=== PATIENT | female | born 1960 | race Caucasian/White ===

== ENCOUNTER 2016-08-15 08:10 | Day surgery (SDC) | payer MEDICARE, OTHER ==
--- NOTE | 2016-08-04 08:17 | HP ---
DATE OF ADMISSION: CHIEF COMPLAINT: Sebaceous cyst. HISTORY OF PRESENT ILLNESS: Patient is a 56-year-old female who comes to the office complaining of a mass in the upper mid back. She states that she had previously had an infected sebaceous cyst in that area that was incised and drained and subsequently excised. The patient describes a large scar in that location. She has mild pain in that location. Some itching. No fevers. No recent redness or antibiotic usage. PAST MEDICAL HISTORY: Peripheral vascular disease, diabetes, hypertension. PAST SURGICAL HISTORY: , hysterectomy, peripheral stent placement. MEDICATIONS: 1. Metformin. 2. Gabapentin. 3. Glipizide. 4. Atorvastatin. 5. Insulin. 6. Levemir. ALLERGIES: None. PHYSICAL EXAM: GENERAL: Well-developed, well-nourished female in no distress. HEENT: Normocephalic. Sclerae is nonicteric. CHEST: No deformities. ABDOMEN: Soft, nontender, nondistended. Back examination reveals a cystic structure in the upper mid back with a puncta present, approximately 1.5 cm to the right of that and a large scar to the right of that area as well. There seems to be some connection between all 3 structures. No erythema, minimal tenderness, no drainage. IMPRESSION: A 56-year-old female with back cyst. PLAN: Will proceed with operative excision on 08/15. The risks of bleeding, infection, postoperative pain, scarring, numbness and recurrence were discussed. She understands and wishes to proceed.
[2016-08-08 13:27] VITALS: BMI 29.5
[~2016-08-15 08:10] MED LIST: DEXAMETHASONE SOD PHOSPHATE 10 MG/ML 1 ML VIAL IV ONE; HEPARIN SODIUM,PORCINE 5,000 UNIT/ML 1 ML VIAL SQ ONE; HYDROmorphone 1 MG/ML 1 ML SYRINGE IVP PRN; LACTATED RINGERS 1,000 ML IV SCH; LIDOCAINE 1% 20 ML VIAL (10MG/ML) FOR IV START INTRADERMA PRN; MIDAZOLAM 2 MG/2 ML VIAL IV PRN; ONDANSETRON 4 MG/2 ML VIAL IVP ONE; Pre Op ABX Message 1 EACH MISC MISCELLANE ONE; SCOPOLAMINE 1.5MG/72HR PATCH TRANSDERM ONE
[2016-08-15 08:56] LABS: Glucose,Whole Blood 200 mg/dL (75-99)
[2016-08-15] MEDS ORDERED: fentaNYL (PF) 50 MCG/ML 2 ML AMP ONE (09:03)
[2016-08-15] MEDS ORDERED: PHENYLEPHRINE-0.9% NACL SYG 1 MG/10 ML SYRINGE ONE (09:03)
[2016-08-15] MEDS ORDERED: LIDOCAINE 1% INJ 10MG/ML (20 ML MDV) ONE (09:03)
[2016-08-15] MEDS ORDERED: SUCCINYLCHOLINE CHLORIDE 100 MG/5 ML SYR IV ONE (09:03)
[2016-08-15] MEDS ORDERED: ePHEDrine 50 MG/ML 1 ML AMP ONE (09:03)
[2016-08-15] MEDS ORDERED: PROPOFOL 10 MG/ML 20 ML VIAL IV ONE (09:03)
[2016-08-15] MEDS ORDERED: MIDAZOLAM 2 MG/2 ML VIAL ONE (09:03)
[2016-08-15] MEDS ORDERED: SODIUM CHLORIDE 0.9% 100 ML with ceFAZolin 2,000 MG IV ONE ×2 (09:29)
[2016-08-15] MEDS ORDERED: BUPIVACAIN-EPI 0.5%-1:200,000 30 ML VIAL SQ ONE (09:32)
[2016-08-15] MEDS ORDERED: HYDROcodone/APAP 5-325MG 1 EACH TAB PO PRN (10:08)
[2016-08-15] MEDS ORDERED: NALOXONE 0.4 MG/ML 1 ML VIAL IV PRN (10:08)
[2016-08-15 10:23] VITALS: RESP 16; TEMP 97.8
--- NOTE | 2016-08-15 10:23 | P.OP ---
Date of Procedure: 08/15/16 Preoperative Diagnosis: Postoperative Diagnosis: Procedure(s) Performed: PREOPERATIVE DIAGNOSIS: Sebaceous cyst POSTOPERATIVE DIAGNOSIS: Same PROCEDURE: Excision sebaceous cyst SURGEON: Chrissy EVANSL: Minimal ANESTHESIA: General COMPLICATIONS: None OPERATIVE PROCEDURE: Patient was placed in the right decubitus position. The sebaceous cyst in the mid upper back was excised. This measured 6 x 2.5 cm. This actually incorporated 3 separate areas of puncta and cysts. This was excised sharply. Small bleeders were controlled using electrocautery. Flaps were raised superiorly and inferiorly. Subcutaneous tissues were closed using 3 -0 Vicryl sutures. The skin was closed using a combination of interrupted and running 4-0 nylon sutures. Sterile dressings were then applied. DISPOSITION: Stable to recovery room Implants: Indications for Procedure: Operative Findings: Description of Procedure:
[2016-08-15 11:04] VITALS: BP 128/58; PULSE 85
== END 2016-08-15 11:05 | disposition home or self-care (01) ==
LOC: OR 08:10
PROVIDERS: ATTEND Surgery
DX: L72.0 Epidermal cyst (principal); I73.9 Peripheral vascular disease, unspecified; E11.9 Type 2 diabetes mellitus without complications; I10 Essential (primary) hypertension; E78.5 Hyperlipidemia, unspecified; F17.200 Nicotine dependence, unspecified, uncomplicated; Z79.84 Long term (current) use of oral hypoglycemic drugs; Z79.4 Long term (current) use of insulin; Z79.899 Other long term (current) drug therapy; Z79.02 Long term (current) use of antithrombotics/antiplatelets; Z79.82 Long term (current) use of aspirin
CPT/HCPCS: 88304; 11406; 12032; J2250; J1644; J1100; J2405; J2001; J3010; J0690; J2370; J0330; J2704

== ENCOUNTER → 2017-05-21 | Outpatient (CLI) | payer MEDICARE ==
[2017-05-21 17:21] LABS: Blood Urea Nitrogen 16 mg/dL (7-17)
--- NOTE | 2017-05-21 18:55 | CT ---
EXAMINATION TYPE: CT abdomen pelvis wo/w con DATE OF EXAM: 05/21/2017 COMPARISON: NONE HISTORY: Rectal pain and diarrhea CT DLP: 2707 mGycm Automated exposure control for dose reduction was used. TECHNIQUE: Helical acquisition of images was performed from the lung bases through the pelvis. CONTRAST: Performed with Oral Contrast and without and with IV Contrast, patient injected with 100 mL of Isovue 300. FINDINGS: Lung bases are clear. There is no pleural effusion. Liver shows no focal defect. Bile ducts are not d ilated. Gallbladder is distended and measures 3.7 cm. Spleen appears normal. There is no pancreatic m ass. There is a oval-shaped 1 cm area on the right adrenal gland. There is no hydronephrosis. Kidneys have normal size. There is bilateral renal calcification that could be vascular. There is no retroperitoneal adenopathy. Abdominal aorta is atheromatous. There is no ascites. Appendi x is not seen. There is no sign of appendicitis. I see no intestinal wall thickening. There are no di lated loops. There is some retained fecal material in the colon. I see no bony destructive process. IMPRESSION: MILD CONSTIPATION. NONOBSTRUCTING RENAL CALCIFICATION. ATHEROSCLEROTIC VASCULAR DISEASE.
== END | disposition home or self-care (01) ==
LOC: RADCTMAIN 16:35
DX: K59.00 Constipation, unspecified (principal); N28.89 Other specified disorders of kidney and ureter; I25.10 Atherosclerotic heart disease of native coronary artery without angina pectoris
CPT/HCPCS: 82565; 84520; 74178; 36415; Q9967

== ENCOUNTER 2017-06-02 14:40 | Emergency (ER) | payer MEDICARE ==
--- NOTE | 2017-06-02 16:35 | ED ---
General Adult HPI - General Chief complaint: Abdominal Pain Stated complaint: back pain/kidney stone Time Seen by Provider: 06/02/17 16:07 Source: patient, family, RN notes reviewed Mode of arrival: ambulatory Limitations: no limitations - History of Present Illness Initial comments: Chief complaint history of present illness a 56-year-old female here with a sister. The patient reports that she's been having discomfort in her perirectal area for 6 years. She sees a GI doctor for this. Patient also had a CAT scan of her abdomen and pelvis done several days ago. She called for the results and she was told that she had kidney stones. The patient presents today with discomfort to the right flank area. This is new. She did not have this when she had a CAT scan. The patient's CAT scan was done here and reviewed by radiologist significant findings include a gallbladder is distended and measures 3.7 cm. There is no hydronephrosis. Kidneys have normal size. There is bilateral renal calcification that could be vascular. The final impression was mild constipation. Nonobstructing renal calcification. Atherosclerotic vascular disease. As read by Dr. Toure - Related Data Home Medications Medication Instructions Recorded Confirmed Aspirin 81 mg PO DAILY 05/08/15 06/02/17 INSULIN LISPRO (HumaLOG) [humaLOG] 0 unit SQ AC-TID 05/08/15 06/02/17 Insulin Detemir [Levemir Flextouch] 30 unit SQ HS 05/08/15 06/02/17 Atorvastatin [Lipitor] 40 mg PO HS 08/08/16 06/02/17 Gabapentin [Neurontin] 300 mg PO TID 08/08/16 06/02/17 metFORMIN HCL 1,000 mg PO BID 08/08/16 06/02/17 Citalopram Hydrobromide [CeleXA] 20 mg PO DAILY 06/02/17 06/02/17 FLUoxetine HCL [PROzac] 40 mg PO DAILY 06/02/17 06/02/17 Ibuprofen [Motrin] 800 mg PO BID 06/02/17 06/02/17 Zolpidem [Ambien] 5 mg PO HS PRN 06/02/17 06/02/17 glipiZIDE [Glucotrol] 10 mg PO AC-BID 06/02/17 06/02/17 Previous Rx's Medication Instructions Recorded Hydrocodone/Acetaminophen [Weston 1 each PO Q6HR PRN #10 tab 06/02/17 5-325] Allergies Allergy/AdvReac Type Severity Reaction Status Date / Time No Known Allergies Allergy Verified 06/02/17 17:42 Review of Systems ROS Statement: Those systems with pertinent positive or pertinent negative responses have been documented in the HPI. Review of systems; no complaint of headache no visual acuity changes denies sore throat denies neck pain denies chest pain or shortness of breath. She has discomfort to the right flank area. Does not significantly increase with twisting turning or bending. Denies any direct injury. Also mild discomfort in the right upper quadrant. Denies nausea vomiting . Denies any change in the color of her stool. Denies the urine being dark. She reports she takes medications to slow her loose stool which is a chronic problem for 6 years. She 's also states she's had a urinary tract infection multiple times currently on Keflex. All systems are reviewed. Past medical problems significant for insulin-dependent diabetes mellitus, osteoarthritis, vascular disorderPAD, she had bilateral fem-pop bypasses. She's had 3 C-sections, partial hysterectomy . The patient's family history an aunt had cancer of unknown type. Patient denies any ALLERGIES. She does smoke strongly encouraged stop smoking especially in lieu of the fact that she has peripheral vascular disease. Patient advised to talk to her family physician about ways to helping her stop. She denies drinking. Currently not working and denies exposure to chemicals at home. ROS Other: All systems not noted in ROS Statement are negative. Past Medical History Past Medical History: Diabetes Mellitus, Osteoarthritis (OA), Vascular Disorder Additional Past Medical History / Comment(s): PAD History of Any Multi-Drug Resistant Organisms: None Reported Past Surgical History: Section, Hysterectomy Additional Past Surgical History / Comment(s): Ceserean section X3, partial hyst and bilateral stents in legs. Past Anesthesia/Blood Transfusion Reactions: No Reported Reaction Past Psychological History: Anxiety, Depression Smoking Status: Current every day smoker Past Alcohol Use History: Rare Past Drug Use History: None Reported - Past Family History Mother Family Medical History: Deep Vein Thrombosis (DVT) General Exam - General Exam Comments Initial Comments: General: The patient is awake and alert, in no distress, and does not appear acutely ill. Finds mild discomfort ongoing for several days to the right flank. No other complaints. Vital signs shows temperature 98.7 pulse 88 respiratory rate 20 pulse ox 97% room air blood pressure elevated 208/84. Initial be repeated. Eye: Pupils are equal, round and reactive to light, extra-ocular movements are intact ; there is normal conjunctiva bilaterally. No signs of icterus. Ears, nose, mouth and throat: There are moist mucous membranes and no oral lesions. Neck: The neck is supple, there is no tenderness . Cardiovascular: There is a regular rate and rhythm. No murmur, rub or gallop is appreciated. Respiratory: Lungs are clear to auscultation, respirations are non-labored, breath sounds are equal. No wheezes, stridor, rales, or rhonchi. Gastrointestinal: Nontender with deep palpation, subjective discomfort to the right upper quadrant and right flank area. No organomegaly. Normal active bowel sounds. Patient reports she takes medication help slow for loose stool. Also complains of chronic discomfort as though her rectum is falling out. She has had colonoscopies in the past 6 months. She does see a GI doctor for this specific complaint. Back: No rashes noted to her back area discomfort to the right flank area. No pain with palpation twisting or turning. Early shingles discussed. Musculoskeletal: Normal ROM, no tenderness, There is no pedal edema. There is no calf tenderness or swelling. Sensation intact. Neurological: No complaint of any neuro deficits no weakness. No balance problems. No focal or lateralizing findings. Skin: Skin is warm and dry and no rashes or lesions are noted. Psychiatric: Cooperative, Limitations: no limitations Course Vital Signs 06/02/17 06/02/17 14:44 16:48 Temperature 98.7 F Pulse Rate 88 78 Respiratory 20 18 Rate Blood Pressure 200/84 166/78 O2 Sat by Pulse 97 96 Oximetry Medical Decision Making - Medical Decision Making Medical decision making; this is a 57-year-old female who been having right flank discomfort for 3 days. Prior to this discomfort starting she had a CAT scan that showed evidence of kidney stones within the kidneys. She also had chronic diarrhea for over 6 years. She does see a production worker. Labs show white count of 9 hemoglobin 17 hematocrit 50 with a potassium 4.9. BUN 14 creatinine 0.55 GFR greater than 90. Glucose 286. Patient reports she' s not good about her diet. Advised to talk to her family doctor about her proper diet. Urine shows 3 reds 4 whites. Ultrasound of the right upper quadrant was done and reviewed by radiologist his impression is that there is some echogenic bile. No gallstones or dilated ducts. As read by Dr. Toure X-ray of the abdomen 2 views was done reviewed by radiologist his impression is there is no sign of intestinal obstruction or pneumoperitoneum. There is retained fecal material throughout the colon. There is vascular calcification. Lung bases are clear. There is curvilinear calcification over the left kidney that could be vascular. Conclusion. Nonacute abdomen. Constipation. As read by Dr. Toure The patient takes medications to stop her loose stool. Urine will be cultured. Advised to continue with her current medications and follow-up with her family doctor. 100 and the patient was given one Weston. She will be given 10 Weston to go home with. Patient denies being on narcotics. - Lab Data Result diagrams: 06/02/17 16:44 06/02/17 16:44 Lab Results 06/02/17 06/02/17 06/02/17 Range/Units 16:39 16:44 16:44 WBC 9.0 (3.8-10.6) k/uL RBC 5.66 H (3.80-5.40) m/uL Hgb 17.8 H (11.4-16.0) gm/dL Hct 50.8 H (34.0-46.0) % MCV 89.9 (80.0-100.0) fL MCH 31.4 (25.0-35.0) pg MCHC 35.0 (31.0-37.0) g/dL RDW 13.8 (11.5-15.5) % Plt Count 148 L (150-450) k/uL Neutrophils % 60 % Lymphocytes % 30 % Monocytes % 5 % Eosinophils % 3 % Basophils % 1 % Neutrophils # 5.4 (1.3-7.7) k/uL Lymphocytes # 2.7 (1.0-4.8) k/uL Monocytes # 0.5 (0-1.0) k/uL Eosinophils # 0.2 (0-0.7) k/uL Basophils # 0.1 (0-0.2) k/uL Sodium 138 (137-145) mmol/L Potassium 4.9 (3.5-5.1) mmol/L Chloride 98 (98-107) mmol/L Carbon Dioxide 25 (22-30) mmol/L Anion Gap 15 mmol/L BUN 14 (7-17) mg/dL Creatinine 0.55 (0.52-1.04) mg/dL Est GFR (CKD-EPI)AfAm >90 (>60 ml/min/1.73 sqM) Est GFR (CKD-EPI)NonAf >90 (>60 ml/min/1.73 sqM) Glucose 286 H (74-99) mg/dL Calcium 10.4 H (8.4-10.2) mg/dL Total Bilirubin 0.6 (0.2-1.3) mg/dL AST 20 (14-36) U/L ALT 25 (9-52) U/L Alkaline Phosphatase 160 H (38-126) U/L Total Protein 7.4 (6.3-8.2) g/dL Albumin 4.7 (3.5-5.0) g/dL Amylase 64 (30-110) U/L Lipase 339 H (23-300) U/L Urine Color Yellow Urine Appearance Clear (Clear) Urine pH 5.5 (5.0-8.0) Ur Specific Reading 1.023 (1.001-1.035) Urine Protein Negative (Negative) Urine Glucose (UA) 4+ H (Negative) Urine Ketones Trace H (Negative) Urine Blood Negative (Negative) Urine Nitrite Negative (Negative) Urine Bilirubin Negative (Negative) Urine Urobilinogen <2.0 (<2.0) mg/dL Ur Leukocyte Esterase Small H (Negative) Urine RBC 3 (0-5) /hpf Urine WBC 4 (0-5) /hpf Ur Squamous Epith Cells 3 (0-4) /hpf Urine Bacteria Rare H (None) /hpf Urine Mucus Rare H (None) /hpf Disposition Clinical Impression: Right flank pain Disposition: HOME SELF-CARE Condition: Fair Instructions: Kidney Stones (ED), Renal Colic (ED) Additional Instructions: Increase fluids. Take medication as directed follow with family physician. Prescriptions: Hydrocodone/Acetaminophen [Weston 5-325] 1 each PO Q6HR PRN #10 tab PRN Reason: Pain Is patient prescribed a controlled substance at d/c from ED?: Yes If prescribed controlled substance>3 days was MAPS reviewed?: No When asked, does pt state using other controlled substances?: No Referrals: Marie Hinojosa MD [Primary Care Provider] - 1-2 days Time of Disposition: 18:19
[2017-06-02 16:48] VITALS: RESP 18
[2017-06-02 17:07] LABS: Appearance,Urine Clear (Clear); Bacteria,Urine Rare /hpf; Bilirubin,Urine Negative (Negative); Blood,Urine Negative (Negative); Color,Urine Yellow; Glucose,Urine (UA) 4+ (Negative); Ketones,Urine Trace (Negative); Leukocyte Esterase,Urine Small (Negative); Mucus,Urine Rare /hpf; Nitrite,Urine Negative (Negative); PH, Urine 5.5 (5.0-8.0); Protein,Urine Negative (Negative); RBC,Urine 3 /hpf (0-5); Specific Gravity,Urine 1.023 (1.001-1.035); Squamous Epithelial Cell,Urine 3 /hpf (0-4); Urobilinogen,Urine <2.0 mg/dL (<2.0); WBC,Urine 4 /hpf (0-5)
--- NOTE | 2017-06-02 17:11 | XR ---
History abdominal pain. Comparison none. Technique 3 views. FINDINGS: There is no sign of intestinal obstruction or pneumoperitoneum. There is retained fecal material thro ughout the colon.. . There is vascular calcification. Lung bases are clear. There is curvilinear calc ification over the left kidney that could be vascular. CONCLUSION: Nonacute abdomen. Constipation.
[2017-06-02 17:15] LABS: ALT 25 U/L (9-52); AST 20 U/L (14-36); Albumin 4.7 g/dL (3.5-5.0); Alkaline Phosphatase 160 U/L (38-126); Amylase 64 U/L (30-110); Anion Gap 15 mmol/L; Blood Urea Nitrogen 14 mg/dL (7-17); Calcium 10.4 mg/dL (8.4-10.2); Carbon Dioxide 25 mmol/L (22-30); Chloride 98 mmol/L (98-107); Glucose 286 mg/dL (74-99); Lipase 339 U/L (23-300); Potassium 4.9 mmol/L (3.5-5.1); Sodium 138 mmol/L (137-145); Total Bilirubin 0.6 mg/dL (0.2-1.3); Total Protein 7.4 g/dL (6.3-8.2)
[2017-06-02 17:16] LABS: Basophils # (A) 0.1 k/uL (0-0.2); Basophils % (A) 1 %; Eosinophils # (A) 0.2 k/uL (0-0.7); Eosinophils % (A) 3 %; HCT 50.8 % (34.0-46.0); HGB 17.8 gm/dL (11.4-16.0); Lymphocytes # (A) 2.7 k/uL (1.0-4.8); Lymphocytes % (A) 30 %; MCH 31.4 pg (25.0-35.0); MCV 89.9 fL (80.0-100.0); Mean Platelet Volume 8.4; Monocytes # (A) 0.5 k/uL (0-1.0); Monocytes % (A) 5 %; Neutrophils # (A) 5.4 k/uL (1.3-7.7); Neutrophils % (A) 60 %; Platelet Count 148 k/uL (150-450); RBC 5.66 m/uL (3.80-5.40); RDW 13.8 % (11.5-15.5)
[2017-06-02] MEDS ORDERED: HYDROcodone/APAP 5-325MG 1 EACH TAB PO STA (17:21)
--- NOTE | 2017-06-02 17:27 | US ---
EXAMINATION TYPE: US abdomen limited DATE OF EXAM: 06/02/2017 COMPARISON: NONE CLINICAL HISTORY: R Upper quadrant discomfort. EXAM MEASUREMENTS: Liver Length: 13.6 cm Gallbladder Wall: 0.1 cm CBD: 0.4 cm Right Kidney: 12.1 x 5.4 x 5.0 cm Pancreas: somewhat obscured by bowel gas Liver: wnl Gallbladder: some dependant sludge Evidence for sonographic Akhtar's sign: CBD: wnl Right Kidney: measures slightly large IMPRESSION: There is some echogenic bile. No gallstones or dilated ducts.
[2017-06-02 18:37] VITALS: BP 175/70; PULSE 73; TEMP 97
== END 2017-06-02 18:37 | disposition home or self-care (01) ==
LOC: EC 14:40
DX: R10.11 Right upper quadrant pain (principal); K59.00 Constipation, unspecified; E11.9 Type 2 diabetes mellitus without complications; M19.90 Unspecified osteoarthritis, unspecified site; F41.9 Anxiety disorder, unspecified; F32.9 Major depressive disorder, single episode, unspecified; I73.89 Other specified peripheral vascular diseases; F17.200 Nicotine dependence, unspecified, uncomplicated; Z90.710 Acquired absence of both cervix and uterus; Z79.82 Long term (current) use of aspirin; Z79.4 Long term (current) use of insulin; Z79.1 Long term (current) use of non-steroidal anti-inflammatories (NSAID); Z79.899 Other long term (current) drug therapy
CPT/HCPCS: 36415; 74019; 76705; 80053; 81001; 82150; 83690; 85025; 87086; 99284

== ENCOUNTER 2017-08-27 12:25 | Emergency (ER) | payer MEDICARE ==
[2017-08-27 12:40] VITALS: TEMP 97.5
[2017-08-27] MEDS ORDERED: SODIUM CHLORIDE 0.9% 1,000 ML IV STA ×2 (13:04)
--- NOTE | 2017-08-27 13:05 | ED ---
Recheck HPI - General Source: patient, RN notes reviewed, old records reviewed Mode of arrival: ambulatory Limitations: no limitations <Anita Bowieily - Last Filed: 08/27/17 15:12> <Gloria Leon - Last Filed: 08/27/17 17:50> - General Chief Complaint: Recheck/Abnormal Lab/Rx Stated Complaint: Shaky, high sugar Time Seen by Provider: 08/27/17 12:41 - History of Present Illness Initial Comments: This patient's a 37-year-old female presents emergency Department chief complaint of shaking episodes feeling lightheaded and dizzy today. Patient reports that she is recently switched from her mealtime insulin to 30 units of Levemir. Patient reports that she started this yesterday with her new primary care physician Dr. Acosta. Patient states that she also started to have some intermittent numbness and tingling to the left arm. She states that she has had a chronic cough she has had COPD. Patient states that she denies any shortness of breath. She reports that she says feels somewhat dizzy with change in position from sitting to standing. Patient is a smoker. (Sania Bowie) - Related Data Home Medications Medication Instructions Recorded Confirmed Aspirin 81 mg PO DAILY 05/08/15 08/27/17 Insulin Detemir [Levemir Flextouch] 30 unit SQ DAILY 05/08/15 08/27/17 Atorvastatin [Lipitor] 40 mg PO HS 08/08/16 08/27/17 metFORMIN HCL 1,000 mg PO BID 08/08/16 08/27/17 Citalopram Hydrobromide [CeleXA] 20 mg PO DAILY 06/02/17 08/27/17 Ibuprofen [Motrin] 800 mg PO BID 06/02/17 08/27/17 glipiZIDE [Glucotrol] 10 mg PO AC-BID 06/02/17 08/27/17 Gabapentin 600 mg PO TID 08/27/17 08/27/17 Nitrofurantoin Monohyd/M-Cryst 100 mg PO Q12HR 08/27/17 08/27/17 [Macrobid] sitaGLIPtin [Januvia] 100 mg PO DAILY 08/27/17 08/27/17 Allergies Allergy/AdvReac Type Severity Reaction Status Date / Time No Known Allergies Allergy Verified 08/27/17 13:17 Review of Systems ROS Other: All systems not noted in ROS Statement are negative. <Sania Bowie - Last Filed: 08/27/17 15:12> ROS Other: All systems not noted in ROS Statement are negative. <Gloria Leon P - Last Filed: 08/27/17 17:50> ROS Statement: Those systems with pertinent positive or pertinent negative responses have been documented in the HPI. Past Medical History Past Medical History: Diabetes Mellitus, Osteoarthritis (OA), Vascular Disorder Additional Past Medical History / Comment(s): PAD History of Any Multi-Drug Resistant Organisms: None Reported Past Surgical History: Section, Hysterectomy Additional Past Surgical History / Comment(s): Ceserean section X3, partial hyst and bilateral stents in legs. Past Anesthesia/Blood Transfusion Reactions: No Reported Reaction Past Psychological History: Anxiety, Depression Smoking Status: Current every day smoker Past Alcohol Use History: Rare Past Drug Use History: None Reported - Past Family History Mother Family Medical History: Deep Vein Thrombosis (DVT) <Sania Bowie - Last Filed: 08/27/17 15:12> General Exam Limitations: no limitations <Sania Bowie - Last Filed: 08/27/17 15:12> <Gloria Leon P - Last Filed: 08/27/17 17:50> - General Exam Comments Initial Comments: Is a 57-year-old female. Alert and oriented. No significant distress. General: Well appearing, well nourished, in no distress. Oriented x 3, normal mood and affect . Ambulating without difficulty. Skin: Good turgor, no rash, unusual bruising or prominent lesions Hair: Normal texture and distribution. HEENT: Head: Normocephalic, atraumatic, no visible or palpable masses, depressions, or scaring. Eyes: Visual acuity intact, conjunctiva clear, sclera non-icteric, EOM intact, PERRL. Ears: EACs clear, TMs translucent & cone of light visualized. hearing intact. Nose: No external lesions, mucosa non-inflamed, septum and turbinates normal Mouth: Mucous membranes moist, no mucosal lesions. Teeth/Gums: No obvious caries or periodontal disease. No gingival inflammation or significant resorption. Pharynx: Mucosa non-inflamed, no tonsillar hypertrophy or exudate Neck: Supple, without lesions, bruits, or adenopathy, thyroid non-enlarged and non-tender Heart: No cardiomegaly or thrills; regular rate and rhythm, no murmur or gallop Lungs: Clear to auscultation and percussion Abdomen: Bowel sounds normal, no tenderness, organomegaly, masses, or hernia Back: Spine normal without deformity or tenderness, no CVA tenderness Extremities: No amputations or deformities, cyanosis, edema or varicosities, peripheral pulses intact Musculoskeletal: Normal gait and station. No misalignment, asymmetry, crepitation, defects, tenderness, masses, effusions, decreased range of motion, instability, atrophy or abnormal strength or tone in the head, neck, spine, ribs , pelvis or extremities. Neurologic: CN 2-12 normal. Sensation to pain, touch, and proprioception normal. DTRs normal in upper and lower extremities. No pathologic reflexes. Psychiatric: Oriented X3, intact recent and remote memory, judgment and insight , normal mood and affect. (Sania Bowie) Vital Signs 08/27/17 08/27/17 08/27/17 12:37 14:28 15:31 Temperature 97.5 F L 97.5 F L Pulse Rate 87 84 80 Respiratory 16 18 18 Rate Blood Pressure 133/74 106/55 124/59 O2 Sat by Pulse 95 94 L 97 Oximetry Medical Decision Making - Lab Data Result diagrams: 08/27/17 13:08 08/27/17 13:08 - Radiology Data Radiology results: report reviewed <Sania Bowie - Last Filed: 08/27/17 15:12> - Lab Data Result diagrams: 08/27/17 13:08 08/27/17 13:08 <Gloria Leon - Last Filed: 08/27/17 17:50> - Medical Decision Making 57-year-old female comes today chief complaint of elevated blood sugar. Patient recent illness Mr. from sliding scale insulin to long-acting Levemir. Patient reports that she's been on Levemir for 2 days. Patient blood sugar was elevated 350 today. She started to feel shaky. Patient reports she isn't having some occasional heaviness. At this time patient's EKG was reviewed and normal no acute changes. Troponin negative. Blood sugar was 3:30. Given 5 units of insulin. Chest x-ray shows evidence of chronic bronchitis no acute process. Patient informed of all these results. This time I discussed continuing her Levemir as well as checking her blood sugars throughout meals. She needs to adjust little findings feel she may do so accordingly. I discussed following up with primary care provider regards to fluctuation within her blood sugar. Patient agrees treatment plan will comply. Return parameters were discussed. Patient has been resting comfortably but appears in no acute distress. Patient is pleased with discharge home. (Sania Bowie) The patient arrived to the emergency department with her sister who required evaluation for an unrelated complaint. The patient requested that her blood glucose be monitored while visiting her sister in the emergency department. She was advised by nursing staff that we can only monitor her glucose at she checks in. At that time the patient made the decision checking to the ER. Patient did admit that she would not of come to the ER were she not particularly here with her sister. Patient in no acute distress, multiple medical comorbidities, no acute emergencies were identified the patient was discharged home in stable condition. (Gloria Leon) - Lab Data Lab Results 08/27/17 08/27/17 08/27/17 Range/Units 13:08 13:08 13:08 WBC 7.2 (3.8-10.6) k/uL RBC 5.08 (3.80-5.40) m/uL Hgb 15.6 (11.4-16.0) gm/dL Hct 46.9 H (34.0-46.0) % MCV 92.3 (80.0-100.0) fL MCH 30.6 (25.0-35.0) pg MCHC 33.2 (31.0-37.0) g/dL RDW 14.2 (11.5-15.5) % Plt Count 130 L (150-450) k/uL Neutrophils % 68 % Lymphocytes % 22 % Monocytes % 5 % Eosinophils % 2 % Basophils % 1 % Neutrophils # 4.9 (1.3-7.7) k/uL Lymphocytes # 1.6 (1.0-4.8) k/uL Monocytes # 0.4 (0-1.0) k/uL Eosinophils # 0.1 (0-0.7) k/uL Basophils # 0.0 (0-0.2) k/uL PT (9.0-12.0) sec INR (<1.2) APTT (22.0-30.0) sec Sodium 136 L (137-145) mmol/L Potassium 4.6 (3.5-5.1) mmol/L Chloride 100 (98-107) mmol/L Carbon Dioxide 22 (22-30) mmol/L Anion Gap 14 mmol/L BUN 12 (7-17) mg/dL Creatinine 0.67 (0.52-1.04) mg/dL Est GFR (CKD-EPI)AfAm >90 (>60 ml/min/1.73 sqM) Est GFR (CKD-EPI)NonAf >90 (>60 ml/min/1.73 sqM) Glucose 327 H (74-99) mg/dL Calcium 9.8 (8.4-10.2) mg/dL Magnesium 1.4 L (1.6-2.3) mg/dL Total Bilirubin 0.3 (0.2-1.3) mg/dL AST 20 (14-36) U/L ALT 34 (9-52) U/L Alkaline Phosphatase 123 (38-126) U/L Total Creatine Kinase 33 (30-135) U/L CK-MB (CK-2) 0.9 (0.0-2.4) ng/mL CK-MB (CK-2) Rel Index 2.7 Troponin I <0.012 (0.000-0.034) ng/mL NT-Pro-B Natriuret Pep pg/mL Total Protein 7.1 (6.3-8.2) g/dL Albumin 4.5 (3.5-5.0) g/dL 08/27/17 08/27/17 Range/Units 13:08 13:08 WBC (3.8-10.6) k/uL RBC (3.80-5.40) m/uL Hgb (11.4-16.0) gm/dL Hct (34.0-46.0) % MCV (80.0-100.0) fL MCH (25.0-35.0) pg MCHC (31.0-37.0) g/dL RDW (11.5-15.5) % Plt Count (150-450) k/uL Neutrophils % % Lymphocytes % % Monocytes % % Eosinophils % % Basophils % % Neutrophils # (1.3-7.7) k/uL Lymphocytes # (1.0-4.8) k/uL Monocytes # (0-1.0) k/uL Eosinophils # (0-0.7) k/uL Basophils # (0-0.2) k/uL PT 10.0 (9.0-12.0) sec INR 1.0 (<1.2) APTT 23.8 (22.0-30.0) sec Sodium (137-145) mmol/L Potassium (3.5-5.1) mmol/L Chloride (98-107) mmol/L Carbon Dioxide (22-30) mmol/L Anion Gap mmol/L BUN (7-17) mg/dL Creatinine (0.52-1.04) mg/dL Est GFR (CKD-EPI)AfAm (>60 ml/min/1.73 sqM) Est GFR (CKD-EPI)NonAf (>60 ml/min/1.73 sqM) Glucose (74-99) mg/dL Calcium (8.4-10.2) mg/dL Magnesium (1.6-2.3) mg/dL Total Bilirubin (0.2-1.3) mg/dL AST (14-36) U/L ALT (9-52) U/L Alkaline Phosphatase (38-126) U/L Total Creatine Kinase (30-135) U/L CK-MB (CK-2) (0.0-2.4) ng/mL CK-MB (CK-2) Rel Index Troponin I (0.000-0.034) ng/mL NT-Pro-B Natriuret Pep 66 pg/mL Total Protein (6.3-8.2) g/dL Albumin (3.5-5.0) g/dL 08/27/17 13:19 EKG shows normal sinus rhythm normal EKG. Ventricular rate of 86 bpm. Her vitals 150 form of seconds. QRS ration 72. QTC 390/469 ms. 08/27/17 15:12 (Sania Bowie) - Radiology Data Chest x-ray shows evidence of peribronchial cuffing for bronchitis or asthma. Changes are chronic. No acute process. (Sania Bowie) Disposition Is patient prescribed a controlled substance at d/c from ED?: No When asked, does pt state using other controlled substances?: No If prescribed controlled substance>3 days was MAPS reviewed?: No If opioid is for acute pain is fill amount 7 days or less?: No If Rx opioid, was Start Talking consent form obtained?: No Time of Disposition: 15:15 <Sania Bowie - Last Filed: 08/27/17 15:12> <Gloria Leon - Last Filed: 08/27/17 17:50> Clinical Impression: Hyperglycemia Disposition: HOME SELF-CARE Condition: Good Instructions: Diabetic Hyperglycemia (ED) Additional Instructions: Patient should rest, drink plenty of water. Avoid sugary drinks he just sold her juices. Patient should check blood sugar throughout the day. He just accordingly with slightly cuenca and if necessary. Continue the Levemir. Patient should return to the emergency department if any alarming signs or symptoms occur. Referrals: Bijan Acosta MD [Primary Care Provider] - 1-2 days
[2017-08-27 13:19] LABS: Basophils % (A) 1 %; Eosinophils # (A) 0.1 k/uL (0-0.7); Eosinophils % (A) 2 %; HCT 46.9 % (34.0-46.0); HGB 15.6 gm/dL (11.4-16.0); Lymphocytes # (A) 1.6 k/uL (1.0-4.8); Lymphocytes % (A) 22 %; MCH 30.6 pg (25.0-35.0); MCHC 33.2 g/dL (31.0-37.0); MCV 92.3 fL (80.0-100.0); Mean Platelet Volume 7.5; Monocytes # (A) 0.4 k/uL (0-1.0); Monocytes % (A) 5 %; Neutrophils # (A) 4.9 k/uL (1.3-7.7); Neutrophils % (A) 68 %; Platelet Count 130 k/uL (150-450); RBC 5.08 m/uL (3.80-5.40); RDW 14.2 % (11.5-15.5); WBC 7.2 k/uL (3.8-10.6)
[2017-08-27 13:29] LABS: Partial Thromboplastin Time 23.8 sec (22.0-30.0)
--- NOTE | 2017-08-27 13:36 | XR ---
EXAMINATION TYPE: XR chest 2V DATE OF EXAM: 08/27/2017 COMPARISON: 05/08/2015 HISTORY: 57-year-old female with chest pain TECHNIQUE: PA and lateral views FINDINGS: Heart normal size. Atherosclerotic arch calcifications. Mild diffuse interstitial prominence and anabelle bronchial cuffing. No consolidation or pleural effusion. IMPRESSION: Peribronchial cuffing suggests bronchitis or asthma. These changes appear largely chronic. No definit e acute process.
[2017-08-27 13:37] LABS: ALT 34 U/L (9-52); AST 20 U/L (14-36); Albumin 4.5 g/dL (3.5-5.0); Alkaline Phosphatase 123 U/L (38-126); Anion Gap 14 mmol/L; Blood Urea Nitrogen 12 mg/dL (7-17); Calcium 9.8 mg/dL (8.4-10.2); Carbon Dioxide 22 mmol/L (22-30); Chloride 100 mmol/L (98-107); Glucose 327 mg/dL (74-99); Magnesium 1.4 mg/dL (1.6-2.3); Potassium 4.6 mmol/L (3.5-5.1); Sodium 136 mmol/L (137-145); Total Bilirubin 0.3 mg/dL (0.2-1.3); Total Protein 7.1 g/dL (6.3-8.2)
[2017-08-27 14:02] LABS: Creatine Kinase 33 U/L (30-135)
[2017-08-27 14:15] LABS: Creatine Kinase MB 0.9 ng/mL (0.0-2.4); Troponin I <0.012 ng/mL (0.000-0.034)
[2017-08-27 14:30] VITALS: RESP 18
[2017-08-27] MEDS ORDERED: INSULIN REGULAR 100 UNIT/ML VIAL IV ONE (14:34)
[2017-08-27 15:32] VITALS: BP 124/59; PULSE 80
== END 2017-08-27 15:31 | disposition home or self-care (01) ==
LOC: EC 12:25
DX: E11.65 Type 2 diabetes mellitus with hyperglycemia (principal); F41.9 Anxiety disorder, unspecified; F32.9 Major depressive disorder, single episode, unspecified; F17.200 Nicotine dependence, unspecified, uncomplicated; Z79.4 Long term (current) use of insulin; Z79.82 Long term (current) use of aspirin; Z79.899 Other long term (current) drug therapy
CPT/HCPCS: 36415; 71046; 80053; 82550; 82553; 83735; 83880; 84484; 85025; 85610; 85730; 93005; 96360; 99285

== ENCOUNTER → 2018-02-10 | Outpatient (CLI) | payer MEDICARE ==
--- NOTE | 2018-02-10 10:09 | CTL ---
EXAMINATION TYPE: CT Low Dose Lung DATE OF EXAM ORDERED: 02/10/2018 HISTORY: Personal history of tobacco abuse. Lung cancer screening. CT DLP: [address] CTDI: 2.41 mGy Automated exposure control for dose reduction was used. SCREENING VISIT: Initial COMPARISON: None TECHNIQUE: Low dose computed tomography scan was performed through the chest at 1 mm thick sections a nd reconstructed images in the coronal plane at [address] DIAGNOSTIC QUALITY: Limited, but interpretable FINDINGS: LUNG NODULES: Present, detailed below: There are 2 adjacent 4 mm pulmonary nodules within the posterior right upper lobe on series 5 image 8 3 and 85. These are subpleural and elongated and may represent scarring. Similar nodule is seen on se pedro luis 5 image 108 measuring 4 mm as well within the peripheral right upper lobe. There is a 2 mm pulmonary nodule with probable early calcification not visualized on soft tissue wind ow however in the anterior right middle lobe on series 5 image 159. There is an elongated 5 mm subpleural pulmonary nodule within the right middle lobe on series 5 image 186 that appears solid in nature. Within the right middle lobe there is a 7 mm pulmonary nodule also favored to contain early calcifica tions although not discretely calcifications on soft tissue windows. This is measured on series 5 alexey ge 201. Subpleural 3 mm pulmonary nodule on series 5 image 215 is seen within the right posterior lower lobe and appears solid in nature. There is a 7 mm pulmonary nodule within the left lower lobe in a subpleural location also favored to contain punctate calcifications. This is measured on series 5 image 177. LUNGS: COPD: Severity: Moderate Fibrosis: Severity: None Lymph nodes: Minimally enlarged precarinal lymph node measures 1.1 cm in short axis. No other mediast inal adenopathy. No axillary adenopathy. Other findings: None RIGHT PLEURAL SPACE: Effusion: None Calcification: None Thickening: None Pneumothorax: None LEFT PLEURAL SPACE: Effusion: None Calcification: None Thickening: None Pneumothorax: None HEART: Heart Size: Nonenlarged Coronary calcification: Moderate Pericardial effusion: None OTHER FINDINGS: Upper abdomen: Suboptimal evaluation. Extensive atherosclerosis of the abdominal aorta and its branch es. Bony thorax: Mild multilevel degenerative changes of the thoracic spine. Supraclavicular region: Few nonenlarged lymph nodes. IMPRESSION: Lung RADS 3. Bilateral pulmonary nodules with the largest both measuring 7 mm in the left lower lobe and right middle lobe. Short-term follow-up low dose CT is recommended in 6 months to joana luate for interval growth. FOLLOW UP CT CHEST RECOMMENDATION: Low-dose CT in [address] LUNG RAD: Lung-Rad 3 Probably Benign
== END | disposition home or self-care (01) ==
LOC: RADCTMAIN 09:10
PROVIDERS: ATTEND Family Medicine
DX: R91.8 Other nonspecific abnormal finding of lung field (principal); Z87.891 Personal history of nicotine dependence

== ENCOUNTER 2020-08-30 10:40 | Inpatient (IN) | payer MEDICARE, OTHER ==
[2020-08-30 11:11] LABS: Glucose,Whole Blood >600 mg/dL (75-99)
--- NOTE | 2020-08-30 11:22 | ED ---
General Adult HPI - General Chief complaint: Abdominal Pain Stated complaint: Abdominal Bleeding Time Seen by Provider: 08/30/20 10:52 Source: patient, family, RN notes reviewed, old records reviewed Mode of arrival: wheelchair Limitations: no limitations - History of Present Illness Initial comments: 60-year-old female presenting with rash to the lower abdomen. She has some minimal bleeding from the site. His been irritated for several days. No fever or abdominal pain. She had a previous midline . She does wear diapers for some urinary incontinence. No cough or fever. She states that her blood sugars may be running high she has not been able to check these at home. - Related Data Home Medications Medication Instructions Recorded Confirmed Atorvastatin [Lipitor] 40 mg PO HS 08/08/16 08/30/20 metFORMIN HCL [Glucophage] 1,000 mg PO BID 08/08/16 08/30/20 Ibuprofen [Motrin] 800 mg PO BID 06/02/17 08/30/20 glipiZIDE [Glucotrol] 10 mg PO BID 06/02/17 08/30/20 ARIPiprazole [Abilify] 5 mg PO HS 08/30/20 08/30/20 Aspirin EC [Ecotrin Low Dose] 81 mg PO DAILY 08/30/20 08/30/20 Carbidopa-Levodopa 10-100 mg 1 tab PO BID 08/30/20 08/30/20 [Sinemet 10-100] Clopidogrel [Plavix] 75 mg PO DAILY 08/30/20 08/30/20 Donepezil [Aricept] 10 mg PO HS 08/30/20 08/30/20 Empagliflozin [Jardiance] 25 mg PO DAILY 08/30/20 08/30/20 FLUoxetine HCL [PROzac] 20 mg PO DAILY 08/30/20 08/30/20 Gabapentin 300 mg PO BID 08/30/20 08/30/20 Ipratropium [place] [Ipratropium 1 - 2 spr EA NOSTRIL DAILY 08/30/20 08/30/20 [place] 0.03%] Losartan Potassium 100 mg PO DAILY 08/30/20 08/30/20 Memantine [Namenda] 5 mg PO HS 08/30/20 08/30/20 Mirtazapine [Remeron] 15 mg PO HS 08/30/20 08/30/20 Nystatin [Nystop] 1 applic TOPICAL BID 08/30/20 08/30/20 Primidone [Mysoline] 75 mg PO HS 08/30/20 08/30/20 Allergies Allergy/AdvReac Type Severity Reaction Status Date / Time No Known Allergies Allergy Verified 08/30/20 12:02 Review of Systems ROS Statement: Those systems with pertinent positive or pertinent negative responses have been documented in the HPI. ROS Other: All systems not noted in ROS Statement are negative. Past Medical History Past Medical History: CVA/TIA, Diabetes Mellitus, Osteoarthritis (OA), Vascular Disorder Additional Past Medical History / Comment(s): PAD History of Any Multi-Drug Resistant Organisms: None Reported Past Surgical History: Section, Hysterectomy Additional Past Surgical History / Comment(s): Ceserean section X3, partial hyst and bilateral stents in legs. Past Anesthesia/Blood Transfusion Reactions: No Reported Reaction Past Psychological History: Anxiety, Depression Smoking Status: Current every day smoker Past Alcohol Use History: Rare Past Drug Use History: None Reported - Past Family History Mother Family Medical History: Deep Vein Thrombosis (DVT) General Exam Limitations: no limitations General appearance: alert, in no apparent distress Head exam: Present: atraumatic, normocephalic Eye exam: Present: normal appearance, PERRL ENT exam: Present: normal exam Neck exam: Present: normal inspection. Absent: tenderness, meningismus Respiratory exam: Present: normal lung sounds bilaterally. Absent: respiratory distress, wheezes Cardiovascular Exam: Present: regular rate, normal rhythm GI/Abdominal exam: Present: soft, other (Fungal infection lower abdomen adjacent to previous surgical incision, the incision itself is intact. There is some satellite lesions and possible bacterial infection overlying.). Absent: distended, tenderness Course Vital Signs 08/30/20 10:41 Temperature 98.2 F Pulse Rate 88 Respiratory 18 Rate Blood Pressure 143/67 O2 Sat by Pulse 93 L Oximetry Medical Decision Making - Medical Decision Making 60-year-old female had presented initially for evaluation of a wound to the lower abdomen. This does appear to be fungal infection. She has no abdominal pain. She has not been unable to check her sugar at home. Blood sugar was obtained emergency department reads critical. Laboratory studies obtained. She is found to be severely hyperglycemic with a blood sugar of 1178. She is also hemoconcentrated with a hemoglobin 17.3. She has a pseudohyponatremia 122. She is not acidotic and his negative for acetone. hyperglycemia without signs of DKA. She started on IV hydration and IV insulin. She'll be admitted to monitored bed. Case discussed with Dr. Acosta who will admit. Serum osmolality pending. - Lab Data Result diagrams: 08/30/20 11:33 08/30/20 11:33 Lab Results 08/30/20 08/30/20 08/30/20 Range/Units 11:09 11:33 11:33 WBC 9.9 (3.8-10.6) k/uL RBC 5.46 H (3.80-5.40) m/uL Hgb 17.3 H (11.4-16.0) gm/dL Hct 55.8 H (34.0-46.0) % MCV 102.1 H (80.0-100.0) fL MCH 31.7 (25.0-35.0) pg MCHC 31.1 (31.0-37.0) g/dL RDW 14.2 (11.5-15.5) % Plt Count 126 L (150-450) k/uL MPV 9.7 Neutrophils % 82 % Lymphocytes % 11 % Monocytes % 6 % Eosinophils % 0 % Basophils % 1 % Neutrophils # 8.1 H (1.3-7.7) k/uL Lymphocytes # 1.1 (1.0-4.8) k/uL Monocytes # 0.6 (0-1.0) k/uL Eosinophils # 0.0 (0-0.7) k/uL Basophils # 0.1 (0-0.2) k/uL Macrocytosis Slight Sodium 122 L (137-145) mmol/L Potassium 5.5 H (3.5-5.1) mmol/L Chloride 82 L (98-107) mmol/L Carbon Dioxide 24 (22-30) mmol/L Anion Gap 16 mmol/L BUN 39 H (7-17) mg/dL Creatinine 0.58 (0.52-1.04) mg/dL Est GFR (CKD-EPI)AfAm >90 (>60 ml/min/1.73 sqM) Est GFR (CKD-EPI)NonAf >90 (>60 ml/min/1.73 sqM) Glucose 1178 H* (74-99) mg/dL POC Glucose (mg/dL) >600 H (75-99) mg/dL POC Glu Viner Operator ID John Thibodeaux A Calcium 10.7 H (8.4-10.2) mg/dL Magnesium 2.1 (1.6-2.3) mg/dL Total Bilirubin 0.5 (0.2-1.3) mg/dL AST 25 (14-36) U/L ALT 37 H (4-34) U/L Alkaline Phosphatase 507 H (38-126) U/L Total Protein 7.7 (6.3-8.2) g/dL Albumin 5.0 (3.5-5.0) g/dL Acetone, Qual Negative (Negative) Disposition Clinical Impression: Yeast dermatitis, Hyperglycemia Disposition: ADMITTED IP TO THIS [facility] Condition: Serious Is patient prescribed a controlled substance at d/c from ED?: No Referrals: Bijan Acosta MD [Primary Care Provider] - 1-2 days Decision to Admit Reason: Admit from EC Decision Date: 08/30/20 Decision Time: 13:16
[2020-08-30 12:04] LABS: ALT 37 U/L (4-34); AST 25 U/L (14-36); African American GFR (CKD) >90 (>60 ml/min/1.73 sqM); Alkaline Phosphatase 507 U/L (38-126); Anion Gap 16 mmol/L; Blood Urea Nitrogen 39 mg/dL (7-17); Calcium 10.7 mg/dL (8.4-10.2); Carbon Dioxide 24 mmol/L (22-30); Chloride 82 mmol/L (98-107); Magnesium 2.1 mg/dL (1.6-2.3); Non-African American GFR(CKD) >90 (>60 ml/min/1.73 sqM); Potassium 5.5 mmol/L (3.5-5.1); Sodium 122 mmol/L (137-145); Total Bilirubin 0.5 mg/dL (0.2-1.3); Total Protein 7.7 g/dL (6.3-8.2)
[2020-08-30 12:15] LABS: Glucose 1178 mg/dL (74-99)
[2020-08-30] MEDS ORDERED: SODIUM CHLORIDE 0.9% 1,000 ML IV ONE (12:24)
[2020-08-30 12:27] LABS: Basophils # (A) 0.1 k/uL (0-0.2); Basophils % (A) 1 %; Eosinophils % (A) 0 %; HGB 17.3 gm/dL (11.4-16.0); Lymphocytes # (A) 1.1 k/uL (1.0-4.8); Lymphocytes % (A) 11 %; MCH 31.7 pg (25.0-35.0); MCHC 31.1 g/dL (31.0-37.0); MCV 102.1 fL (80.0-100.0); Macrocytosis Slight; Mean Platelet Volume 9.7; Monocytes # (A) 0.6 k/uL (0-1.0); Monocytes % (A) 6 %; Neutrophils # (A) 8.1 k/uL (1.3-7.7); Neutrophils % (A) 82 %; Platelet Count 126 k/uL (150-450); RBC 5.46 m/uL (3.80-5.40); RDW 14.2 % (11.5-15.5); WBC 9.9 k/uL (3.8-10.6)
[2020-08-30 12:34] LABS: HCT 55.8 % (34.0-46.0)
[2020-08-30] MEDS ORDERED: INSULIN REGULAR BOLUS (FROM DRIP BAG) IV ONE (12:40)
[2020-08-30] MEDS: INSULIN REGULAR 100 UNIT in SODIUM CHLORIDE 0.9% 100 ML IV SCH (13:10)
[2020-08-30] MEDS: NYSTATIN 100,000 UNIT/GM POWD 15 GM TOPICAL SCH ×2 (13:16→22:36)
[2020-08-30 13:20] LABS: Glucose,Whole Blood >600 mg/dL (75-99)
[2020-08-30 14:23] LABS: Glucose,Whole Blood >600 mg/dL (75-99)
[2020-08-30] MEDS: SODIUM CHLORIDE 0.9% 1,000 ML IV SCH ×3 (15:27→23:17)
[2020-08-30 15:35] LABS: Glucose,Whole Blood 514 mg/dL (75-99)
[2020-08-30 16:34] LABS: Glucose,Whole Blood 479 mg/dL (75-99)
[2020-08-30 16:41] LABS: VBG PH 7.3 (7.31-7.41)
[2020-08-30 16:44] LABS: African American GFR (CKD) >90 (>60 ml/min/1.73 sqM); Anion Gap 13 mmol/L; Blood Urea Nitrogen 31 mg/dL (7-17); Carbon Dioxide 25 mmol/L (22-30); Chloride 94 mmol/L (98-107); Non-African American GFR(CKD) >90 (>60 ml/min/1.73 sqM); Potassium 4.1 mmol/L (3.5-5.1); Sodium 132 mmol/L (137-145)
[2020-08-30 16:45] LABS: Glucose 522 mg/dL (74-99)
[2020-08-30 17:57] LABS: Glucose,Whole Blood 332 mg/dL (75-99)
--- NOTE | 2020-08-30 18:57 | HP ---
HISTORY AND PHYSICAL 60-year-old white female came in with a rash to her lower abdomen with minimal bleeding from the site. It has been bleeding for several days. She had a previous midline C- section. Has ( ) urinary incontinence. No cough or fever. Blood sugars may be running high, sugars are found to be like over 600, near 1200. MEDICATIONS: Home medications she takes Lipitor 840 mg daily, Glucophage 1000 b.i.d., Motrin 800 b.i.d., Glucotrol 10 b.i.d., Abilify 5 daily, aspirin 81 daily. Sinemet 10/100 b.i.d., Plavix 75 daily, Aricept 10 daily, gabapentin 300 b.i.d., Prozac 20 mg daily, Jardiance 25 daily, losartan 100 mg daily, Namenda 5 mg daily, Remeron 15 at night, nystatin topically b.i.d. mycin 75 at night. ALLERGIES: Negative. REVIEW OF SYSTEM: 14-point review of systems negative except for mentioned in HPI. PAST MEDICAL HISTORY: CVA, TIA, diabetes mellitus, osteoarthritis, vascular disorder. PAST SURGICAL HISTORY: , hysterectomy, anxiety, depression. FAMILY HISTORY: Mother with DVT. PHYSICAL EXAM: Blood pressure is 140s over 60s, O2 92 on room air, and temp 98.2, ( ), respiratory rate 12 to 18. Cardiovascular: Regular rate and rhythm. GI: Soft. Fungal infection over her lower abdomen, satellite lesions, possibly bacterial infection. Lungs are clear. Cardiovascular S1, S2. External ear canals within normal limits. Neck is supple. HEAD: Normocephalic, atraumatic. Pupils equal, round, reactive. ASSESSMENT: Severe candidiasis of the lower abdomen, uncontrolled diabetes mellitus. PLAN: She will need insulin, secondary polycythemia secondary to longstanding smoking, pseudohyponatremia, negative for acetone. IV hydration, IV insulin. Prognosis is guarded. She will get long-acting insulin tonight and will follow up in next 24 to 48 hours for possible discharge. Treat aggressively the yeast dermatitis and uncontrolled diabetes mellitus. Prognosis guarded. MMODL / IJN: [id number] /
[2020-08-30 20:08] LABS: Glucose,Whole Blood 218 mg/dL (75-99)
[2020-08-30 20:49] LABS: African American GFR (CKD) >90 (>60 ml/min/1.73 sqM); Anion Gap 8 mmol/L; Blood Urea Nitrogen 26 mg/dL (7-17); Carbon Dioxide 27 mmol/L (22-30); Chloride 99 mmol/L (98-107); Glucose 226 mg/dL (74-99); Non-African American GFR(CKD) >90 (>60 ml/min/1.73 sqM); Potassium 4.1 mmol/L (3.5-5.1); Sodium 134 mmol/L (137-145)
[2020-08-30 21:08] LABS: Glucose,Whole Blood 199 mg/dL (75-99)
[2020-08-30] MEDS: INSULIN DETEMIR (LEVEMIR) 100 UNIT/ML SYR SQ SCH ×2 (21:37→23:19)
[2020-08-30 22:03] LABS: Glucose,Whole Blood 179 mg/dL (75-99)
[2020-08-30] MEDS: MIRTAZAPINE 15 MG TAB PO SCH (22:31)
[2020-08-30] MEDS: ATORVASTATIN 40 MG TAB PO SCH (22:31)
[2020-08-30] MEDS: DONEPEZIL 10 MG TAB PO SCH (22:31)
[2020-08-30] MEDS: IBUPROFEN 800 MG TAB PO SCH (22:31)
[2020-08-30] MEDS: CARBIDOPA-LEVODOPA 10-100 MG 1 EACH TAB PO SCH (22:32)
[2020-08-30] MEDS: GABAPENTIN 300 MG CAP PO SCH (22:32)
[2020-08-30] MEDS: ARIPiprazole 5 MG TAB PO SCH (22:32)
[2020-08-30] MEDS: PRIMIDONE 25 MG TAB PO SCH (22:32)
[2020-08-30] MEDS: metFORMIN 500 MG TAB PO SCH (22:32)
[2020-08-30] MEDS: MEMANTINE 5 MG TAB PO SCH (22:32)
[2020-08-30 23:10] LABS: Glucose,Whole Blood 167 mg/dL (75-99)
[2020-08-31 00:07] LABS: Glucose,Whole Blood 185 mg/dL (75-99)
[2020-08-31] MEDS: D5-0.45% NACL WITH KCL 20MEQ/L 1,000 ML IV SCH ×2 (00:18→06:43)
[2020-08-31 01:03] LABS: African American GFR (CKD) >90 (>60 ml/min/1.73 sqM); Anion Gap 8 mmol/L; Blood Urea Nitrogen 27 mg/dL (7-17); Carbon Dioxide 26 mmol/L (22-30); Chloride 101 mmol/L (98-107); Glucose 190 mg/dL (74-99); Magnesium 2.1 mg/dL (1.6-2.3); Non-African American GFR(CKD) >90 (>60 ml/min/1.73 sqM); Phosphorus 3.1 mg/dL (2.5-4.5); Potassium 4.3 mmol/L (3.5-5.1); Sodium 135 mmol/L (137-145)
[2020-08-31 01:20] LABS: Glucose,Whole Blood 199 mg/dL (75-99)
[2020-08-31 02:04] LABS: Glucose,Whole Blood 188 mg/dL (75-99)
[2020-08-31 03:17] LABS: Glucose,Whole Blood 207 mg/dL (75-99)
[2020-08-31 04:08] LABS: Glucose,Whole Blood 180 mg/dL (75-99)
[2020-08-31 05:12] LABS: Glucose,Whole Blood 167 mg/dL (75-99)
[2020-08-31] MEDS: INSULIN REGULAR 100 UNIT in SODIUM CHLORIDE 0.9% 100 ML IV SCH (05:54)
[2020-08-31] MEDS: SODIUM CHLORIDE 0.9% 1,000 ML IV SCH ×2 (05:57→12:51)
[2020-08-31 06:10] LABS: Glucose,Whole Blood 171 mg/dL (75-99)
[2020-08-31 07:04] LABS: Glucose,Whole Blood 184 mg/dL (75-99)
[2020-08-31 08:21] LABS: Glucose,Whole Blood 182 mg/dL (75-99)
[2020-08-31 08:41] LABS: African American GFR (CKD) >90 (>60 ml/min/1.73 sqM); Anion Gap 5 mmol/L; Blood Urea Nitrogen 22 mg/dL (7-17); Calcium 9.8 mg/dL (8.4-10.2); Carbon Dioxide 26 mmol/L (22-30); Chloride 102 mmol/L (98-107); Glucose 188 mg/dL (74-99); Non-African American GFR(CKD) >90 (>60 ml/min/1.73 sqM); Phosphorus 2.2 mg/dL (2.5-4.5); Potassium 4.6 mmol/L (3.5-5.1); Sodium 133 mmol/L (137-145)
[2020-08-31] MEDS: NON FORMULARY DRUG (Empagliflozin [Jardiance] 25 MG Tablet) PO SCH (08:50)
[2020-08-31] MEDS: IBUPROFEN 800 MG TAB PO SCH ×2 (08:51→20:44)
[2020-08-31] MEDS: LOSARTAN 50 MG TAB PO SCH (08:51)
[2020-08-31] MEDS: metFORMIN 500 MG TAB PO SCH ×2 (08:52→20:44)
[2020-08-31] MEDS: CLOPIDOGREL 75 MG TAB PO SCH (08:52)
[2020-08-31] MEDS: FLUoxetine HCL 20 MG CAP PO SCH (08:52)
[2020-08-31] MEDS: GABAPENTIN 300 MG CAP PO SCH ×2 (08:52→20:44)
[2020-08-31] MEDS: ASPIRIN 81 MG PO SCH (08:52)
[2020-08-31] MEDS: CARBIDOPA-LEVODOPA 10-100 MG 1 EACH TAB PO SCH ×2 (08:53→21:29)
[2020-08-31 09:16] LABS: Glucose,Whole Blood 180 mg/dL (75-99)
[2020-08-31 10:04] LABS: Glucose,Whole Blood 204 mg/dL (75-99)
[2020-08-31 11:09] LABS: Glucose,Whole Blood 196 mg/dL (75-99)
[2020-08-31 12:05] LABS: Glucose,Whole Blood 204 mg/dL (75-99)
[2020-08-31] MEDS: INSULIN ASPART (NovoLOG) 100 UNIT/ML VIAL SQ SCH ×3 (13:14→20:43)
[2020-08-31 14:33] VITALS: BMI 27.7
[2020-08-31 16:32] LABS: Hemoglobin A1C 12.3 % (4.0-6.0)
[2020-08-31] MEDS: NYSTATIN 100,000 UNIT/GM POWD 15 GM TOPICAL SCH ×3 (16:45→21:30)
[2020-08-31 16:50] LABS: Glucose,Whole Blood 211 mg/dL (75-99)
[2020-08-31] MEDS: TRIAMCINOLONE ACET 0.1% OINTMENT 15 GM TUBE TOPICAL SCH (17:11)
[2020-08-31] MEDS: NYSTATIN 100,000 UNIT/GM OINT 30 GM TUBE TOPICAL SCH (17:11)
[2020-08-31] MEDS ORDERED: NYSTAT-TRIAMCIN 100,000-0.1 UNIT/GM-% OINT 30 GM TUBE TOPICAL SCH (17:30)
[2020-08-31 20:18] LABS: Glucose,Whole Blood 203 mg/dL (75-99)
[2020-08-31] MEDS: INSULIN DETEMIR (LEVEMIR) 100 UNIT/ML SYR SQ SCH (20:43)
[2020-08-31] MEDS: DONEPEZIL 10 MG TAB PO SCH (20:44)
[2020-08-31] MEDS: ATORVASTATIN 40 MG TAB PO SCH (20:44)
[2020-08-31] MEDS: MIRTAZAPINE 15 MG TAB PO SCH (20:44)
[2020-08-31] MEDS: MEMANTINE 5 MG TAB PO SCH (20:44)
[2020-08-31] MEDS: PRIMIDONE 25 MG TAB PO SCH (21:29)
[2020-08-31] MEDS: ARIPiprazole 5 MG TAB PO SCH (21:29)
[2020-09-01 01:05] VITALS: TEMP 98.2
--- NOTE | 2020-09-01 06:55 | PN ---
PROGRESS NOTE A 60-year-old white female who is breathing better today. She states she feels stronger. She has been weaned off insulin drip, placed on Accu-Chek protocol with long- acting insulin. Diabetic education with Glucometer has been given. Continues on Sinemet, Cozaar, Remeron, Metformin, Namenda, Mycostatin powder is being given for abdominal wounds. Mysoline has been continued for her tremor. Continue current treatments. Monitor sugar overnight. Again get rehab placement. Get Dr. Gomez recommendations for abdominal fold infection. Possible discharge home. She had nonketotic hyperosmolar hyperglycemia. Prognosis guarded. MMODL / IJN: [id number] /
[2020-09-01 07:05] LABS: Glucose,Whole Blood 157 mg/dL (75-99)
[2020-09-01 07:30] VITALS: BP 98/53; PULSE 70; RESP 12
[2020-09-01] MEDS: metFORMIN 500 MG TAB PO SCH (07:30)
[2020-09-01] MEDS: LOSARTAN 50 MG TAB PO SCH (07:30)
[2020-09-01] MEDS: GABAPENTIN 300 MG CAP PO SCH (07:30)
[2020-09-01] MEDS: IBUPROFEN 800 MG TAB PO SCH (07:30)
[2020-09-01] MEDS: FLUoxetine HCL 20 MG CAP PO SCH (07:30)
[2020-09-01] MEDS: INSULIN ASPART (NovoLOG) 100 UNIT/ML VIAL SQ SCH ×2 (07:31→12:07)
[2020-09-01] MEDS: ASPIRIN 81 MG PO SCH (07:31)
[2020-09-01] MEDS: CLOPIDOGREL 75 MG TAB PO SCH (07:31)
[2020-09-01] MEDS: NON FORMULARY DRUG (Empagliflozin [Jardiance] 25 MG Tablet) PO SCH (07:31)
[2020-09-01] MEDS: CARBIDOPA-LEVODOPA 10-100 MG 1 EACH TAB PO SCH (08:04)
--- NOTE | 2020-09-01 09:09 | P.CONS ---
History of Present Illness - Reason for Consult Consult date: 08/31/20 abdominal wound Requesting physician: Bijan Acosta - Chief Complaint Abdominal pain x few days - History of Present Illness Patient is a 60 female past medical he significant for insulin- dependent epididymitis patient presenting to the hospital with a rash to the upper abdominal area patient mentioned has been going on for the last few days as an area of irritation patient denies having any history of any trauma or scratching that area patient did notice a minimal bleeding from the site she has been complaining of mild dull aching pain to the area 3-4 10 no radiation no purulent drainage he denies having any fever or any chills patient on presented to the hospital was afebrile patient did have a normal white count patient did have a glucose of more than 600 she was started on insulin infectious was consulted for further management of the abdominal wall wound and need for antibiotic therapy Review of Systems Positive point has been mentioned in the HPI rest of the systems are negative Past Medical History Past Medical History: CVA/TIA, Diabetes Mellitus, Osteoarthritis (OA), Vascular Disorder Additional Past Medical History / Comment(s): PAD History of Any Multi-Drug Resistant Organisms: None Reported Past Surgical History: Section, Hysterectomy Additional Past Surgical History / Comment(s): Ceserean section X3, partial hyst and bilateral stents in legs. Past Anesthesia/Blood Transfusion Reactions: No Reported Reaction Past Psychological History: Anxiety, Depression Smoking Status: Current every day smoker Past Alcohol Use History: Rare Additional Past Alcohol Use History / Comment(s): Has been smoking 1 PPD since 19 yrs of age. Past Drug Use History: None Reported - Past Family History Mother Family Medical History: Deep Vein Thrombosis (DVT) Medications and Allergies Home Medications Medication Instructions Recorded Confirmed Type Atorvastatin [Lipitor] 40 mg PO HS 08/08/16 08/30/20 History metFORMIN HCL [Glucophage] 1,000 mg PO BID 08/08/16 08/30/20 History Ibuprofen [Motrin] 800 mg PO BID 06/02/17 08/30/20 History glipiZIDE [Glucotrol] 10 mg PO BID 06/02/17 08/30/20 History ARIPiprazole [Abilify] 5 mg PO HS 08/30/20 08/30/20 History Aspirin EC [Ecotrin Low Dose] 81 mg PO DAILY 08/30/20 08/30/20 History Carbidopa-Levodopa 10-100 mg 1 tab PO BID 08/30/20 08/30/20 History [Sinemet 10-100] Clopidogrel [Plavix] 75 mg PO DAILY 08/30/20 08/30/20 History Donepezil [Aricept] 10 mg PO HS 08/30/20 08/30/20 History Empagliflozin [Jardiance] 25 mg PO DAILY 08/30/20 08/30/20 History FLUoxetine HCL [PROzac] 20 mg PO DAILY 08/30/20 08/30/20 History Gabapentin 300 mg PO BID 08/30/20 08/30/20 History Ipratropium [place] [Ipratropium 1 - 2 spr EA NOSTRIL DAILY 08/30/20 08/30/20 History [place] 0.03%] Losartan Potassium 100 mg PO DAILY 08/30/20 08/30/20 History Memantine [Namenda] 5 mg PO HS 08/30/20 08/30/20 History Mirtazapine [Remeron] 15 mg PO HS 08/30/20 08/30/20 History Nystatin [Nystop] 1 applic TOPICAL BID 08/30/20 08/30/20 History Primidone [Mysoline] 75 mg PO HS 08/30/20 08/30/20 History Allergies Allergy/AdvReac Type Severity Reaction Status Date / Time No Known Allergies Allergy Verified 08/30/20 12:02 Physical Exam Vitals: Vital Signs Temp Pulse Resp BP Pulse Ox 08/31/20 12:00 71 16 120/57 93 L 08/31/20 08:00 98.1 F 73 16 134/75 92 L 08/31/20 04:00 98.1 F 80 18 150/70 95 08/31/20 02:00 83 18 08/31/20 00:00 98.3 F 83 18 152/73 94 L 08/30/20 20:00 98.2 F 82 18 138/65 93 L Intake and Output 08/31/20 08/31/20 08/31/20 06:59 14:59 22:59 Intake Total 101 540 Output Total 900 Balance 101 -360 Intake: Intake, IV Titration 101 Amount Insulin Regular 100 unit 101 In Sodium Chloride 0.9% 100 ml @ 0.1 UNITS/KG/HR 7.33 mls/hr IV .[id number] [facility] Rx#:[id number] Oral 540 Output: Urine 900 Other: Voiding Method Bedside Commode Bedside Commode # Voids 0 # Bowel Movements 2 Weight 78 kg 78 kg GENERAL DESCRIPTION: Middle-aged female lying in bed, no distress. No tachypnea or accessory muscle of respiration use. HEENT: Shows Pallor , no scleral icterus. Oral mucous membrane is dry. No pharyngeal erythema or thrush NECK: Trachea central, no thyromegaly. LUNGS: Unlabored breathing. Clear to auscultation anteriorly. No wheeze or crackle. HEART: S1, S2, regular rate and rhythm. No loud murmur ABDOMEN: Soft, no tenderness , erythematous patch lower abdominal wall. Some clear drainage EXTREMITIES: No edema of feet. SKIN: No rash, no masses palpable. NEUROLOGICAL: The patient is awake, alert, oriented x3, mood and affect normal. Results CBC & Chem 7: 08/30/20 11:33 08/31/20 08:01 Labs: Abnormal Lab Results - Last 24 Hours (Table) 08/30/20 08/30/20 08/30/20 Range/Units 15:49 15:49 16:31 VBG pH 7.30 L (7.31-7.41) VBG pCO2 55 H (37-51) mmHg Sodium 132 L (137-145) mmol/L Chloride 94 L (98-107) mmol/L BUN 31 H (7-17) mg/dL Creatinine (0.52-1.04) mg/dL Glucose 522 H* (74-99) mg/dL POC Glucose (mg/dL) 479 H (75-99) mg/dL Phosphorus (2.5-4.5) mg/dL 08/30/20 08/30/20 08/30/20 Range/Units 17:55 20:07 20:25 VBG pH (7.31-7.41) VBG pCO2 (37-51) mmHg Sodium 134 L (137-145) mmol/L Chloride (98-107) mmol/L BUN 26 H (7-17) mg/dL Creatinine 0.48 L (0.52-1.04) mg/dL Glucose 226 H (74-99) mg/dL POC Glucose (mg/dL) 332 H 218 H (75-99) mg/dL Phosphorus (2.5-4.5) mg/dL 08/30/20 08/30/20 08/30/20 Range/Units 21:07 22:01 23:06 VBG pH (7.31-7.41) VBG pCO2 (37-51) mmHg Sodium (137-145) mmol/L Chloride (98-107) mmol/L BUN (7-17) mg/dL Creatinine (0.52-1.04) mg/dL Glucose (74-99) mg/dL POC Glucose (mg/dL) 199 H 179 H 167 H (75-99) mg/dL Phosphorus (2.5-4.5) mg/dL 08/31/20 08/31/20 08/31/20 Range/Units 00:06 00:25 01:18 VBG pH (7.31-7.41) VBG pCO2 (37-51) mmHg Sodium 135 L (137-145) mmol/L Chloride (98-107) mmol/L BUN 27 H (7-17) mg/dL Creatinine 0.51 L (0.52-1.04) mg/dL Glucose 190 H (74-99) mg/dL POC Glucose (mg/dL) 185 H 199 H (75-99) mg/dL Phosphorus (2.5-4.5) mg/dL 08/31/20 08/31/20 08/31/20 Range/Units 02:03 03:16 04:06 VBG pH (7.31-7.41) VBG pCO2 (37-51) mmHg Sodium (137-145) mmol/L Chloride (98-107) mmol/L BUN (7-17) mg/dL Creatinine (0.52-1.04) mg/dL Glucose (74-99) mg/dL POC Glucose (mg/dL) 188 H 207 H 180 H (75-99) mg/dL Phosphorus (2.5-4.5) mg/dL 08/31/20 08/31/20 08/31/20 Range/Units 05:11 06:09 07:02 VBG pH (7.31-7.41) VBG pCO2 (37-51) mmHg Sodium (137-145) mmol/L Chloride (98-107) mmol/L BUN (7-17) mg/dL Creatinine (0.52-1.04) mg/dL Glucose (74-99) mg/dL POC Glucose (mg/dL) 167 H 171 H 184 H (75-99) mg/dL Phosphorus (2.5-4.5) mg/dL 08/31/20 08/31/20 08/31/20 Range/Units 08:01 08:21 09:15 VBG pH (7.31-7.41) VBG pCO2 (37-51) mmHg Sodium 133 L (137-145) mmol/L Chloride (98-107) mmol/L BUN 22 H (7-17) mg/dL Creatinine 0.44 L (0.52-1.04) mg/dL Glucose 188 H (74-99) mg/dL POC Glucose (mg/dL) 182 H 180 H (75-99) mg/dL Phosphorus 2.2 L (2.5-4.5) mg/dL 08/31/20 08/31/20 08/31/20 Range/Units 10:02 11:07 12:03 VBG pH (7.31-7.41) VBG pCO2 (37-51) mmHg Sodium (137-145) mmol/L Chloride (98-107) mmol/L BUN (7-17) mg/dL Creatinine (0.52-1.04) mg/dL Glucose (74-99) mg/dL POC Glucose (mg/dL) 204 H 196 H 204 H (75-99) mg/dL Phosphorus (2.5-4.5) mg/dL Assessment and Plan Assessment: patient with superficial ulceration of the abdominal wall with concern for possible fungal dermatitis patient is clinically not behaving as a bacterial cellulitis (1) Yeast dermatitis Current Visit: Yes Status: Acute Code(s): B37.2 - CANDIDIASIS OF SKIN AND NAIL SNOMED Code(s): 08449004 Plan: 1-we will apply Mycolog cream to the affected area twice a day 2-no need for systemic antibiotic therapy We will follow on clinical condition and cultures to further adjust medication if needed Thank you for this consultation we will follow the patient along with you Time with Patient: Greater than 30
[2020-09-01] MEDS: NYSTATIN 100,000 UNIT/GM OINT 30 GM TUBE TOPICAL SCH (09:36)
[2020-09-01] MEDS: TRIAMCINOLONE ACET 0.1% OINTMENT 15 GM TUBE TOPICAL SCH (09:36)
[2020-09-01] MEDS: NYSTATIN 100,000 UNIT/GM POWD 15 GM TOPICAL SCH (09:36)
[2020-09-01 11:12] LABS: Glucose,Whole Blood 312 mg/dL (75-99)
== END 2020-09-01 13:00 | disposition home or self-care (01) | DRG 607 ==
LOC: EC 10:40 → 3SCARD 12:40 → UNDODISIN 08-31 16:00 → 4SSUR 08-31 17:57
PROVIDERS: ADMIT Family Medicine; ATTEND Family Medicine
DX: B37.2 Candidiasis of skin and nail (principal); E11.65 Type 2 diabetes mellitus with hyperglycemia; L30.8 Other specified dermatitis; R25.1 Tremor, unspecified; R32 Unspecified urinary incontinence; F17.200 Nicotine dependence, unspecified, uncomplicated; E11.51 Type 2 diabetes mellitus with diabetic peripheral angiopathy without gangrene; F41.9 Anxiety disorder, unspecified; F32.9 Major depressive disorder, single episode, unspecified; D75.1 Secondary polycythemia; I73.9 Peripheral vascular disease, unspecified; M19.90 Unspecified osteoarthritis, unspecified site; Z79.84 Long term (current) use of oral hypoglycemic drugs; Z79.82 Long term (current) use of aspirin; Z79.899 Other long term (current) drug therapy; Z86.73 Personal history of transient ischemic attack (TIA), and cerebral infarction without residual deficits; Z90.710 Acquired absence of both cervix and uterus; Z79.02 Long term (current) use of antithrombotics/antiplatelets; Z83.2 Family history of diseases of the blood and blood-forming organs and certain disorders involving the immune mechanism
CPT/HCPCS: 36415; 80048; 80051; 80053; 82009; 82565; 82803; 82947; 83036; 83735; 83930; 84100; 84520; 85025; 93005; 99285

== ENCOUNTER → 2020-09-05 | Outpatient (CLI) | payer MEDICARE, OTHER ==
[~2020-09-05] MED LIST changes: -DEXAMETHASONE SOD PHOSPHATE 10 MG/ML 1 ML VIAL IV ONE; -HEPARIN SODIUM,PORCINE 5,000 UNIT/ML 1 ML VIAL SQ ONE; -HYDROmorphone 1 MG/ML 1 ML SYRINGE IVP PRN; +IODINE/POTASS IOD (LUGOLS) BOTTLE TOPICAL ONE; -LACTATED RINGERS 1,000 ML IV SCH; -LIDOCAINE 1% 20 ML VIAL (10MG/ML) FOR IV START INTRADERMA PRN; -MIDAZOLAM 2 MG/2 ML VIAL IV PRN; -ONDANSETRON 4 MG/2 ML VIAL IVP ONE; -Pre Op ABX Message 1 EACH MISC MISCELLANE ONE; -SCOPOLAMINE 1.5MG/72HR PATCH TRANSDERM ONE
--- NOTE | 2020-09-06 09:29 | NM ---
EXAMINATION TYPE: NM DatScan Brain SPECT DATE OF EXAM: 09/05/2020 COMPARISON: NONE HISTORY: Tremors TECHNIQUE: 10 drops of Lugol's solution was administered 1 hour prior to injection as a thyroid bloc prema agent. After the administration of 4.54 mCi I-123 Ioflupane DaTscan. Images obtained 3 hours p ost injection. SPECT images of the brain were acquired with axial and coronal reconstructions. FINDINGS: The axial SPECT images demonstrate increased background activity and symmetric activity wit hin the bilateral striata of normal morphology. IMPRESSION: Exam within normal limits.
== END | disposition home or self-care (01) ==
LOC: RADNMMAIN 11:14
PROVIDERS: ATTEND Psychiatry & Neurology Neurology
DX: R25.1 Tremor, unspecified (principal)
CPT/HCPCS: 78803; A9584

== ENCOUNTER 2021-02-27 06:20 | Day surgery (SDC) | payer MEDICARE, OTHER ==
[~2021-02-27 06:20] MED LIST changes: +ALPRAZolam 0.25 MG TAB PO PRN; +ASPIRIN 325 MG TAB PO PRN; -IODINE/POTASS IOD (LUGOLS) BOTTLE TOPICAL ONE; +SODIUM CHLORIDE 0.9% 1,000 ML in EMPTY BAG 1 BAG IV ONE
[2021-02-27] MEDS ORDERED: ASPIRIN 325 MG TAB ONE (06:48)
[2021-02-27] MEDS ORDERED: CLOPIDOGREL 75 MG TAB ONE (06:48)
[2021-02-27] MEDS ORDERED: SODIUM CHLORIDE 0.9% 1,000 ML IV ONE (06:57)
[2021-02-27] MEDS: INSULIN ASPART (NovoLOG) 100 UNIT/ML VIAL SQ SCH ×5 (07:00→21:38)
[2021-02-27 07:02] LABS: Glucose,Whole Blood 399 mg/dL (75-99)
[2021-02-27 07:21] LABS: Basophils # (A) 0.1 k/uL (0-0.2); Basophils % (A) 1 %; Eosinophils # (A) 0.2 k/uL (0-0.7); Eosinophils % (A) 2 %; HCT 51.7 % (34.0-46.0); HGB 16.7 gm/dL (11.4-16.0); Lymphocytes % (A) 31 %; MCH 30.1 pg (25.0-35.0); MCHC 32.3 g/dL (31.0-37.0); MCV 93.1 fL (80.0-100.0); Monocytes # (A) 0.6 k/uL (0-1.0); Monocytes % (A) 6 %; Neutrophils # (A) 5.9 k/uL (1.3-7.7); Neutrophils % (A) 59 %; Platelet Count 151 k/uL (150-450); RBC 5.55 m/uL (3.80-5.40); RDW 13.7 % (11.5-15.5)
[2021-02-27 07:37] LABS: African American GFR (CKD) >90 (>60 ml/min/1.73 sqM); Anion Gap 8 mmol/L; Blood Urea Nitrogen 29 mg/dL (7-17); Calcium 10.3 mg/dL (8.4-10.2); Carbon Dioxide 27 mmol/L (22-30); Chloride 97 mmol/L (98-107); Glucose 422 mg/dL (74-99); Non-African American GFR(CKD) >90 (>60 ml/min/1.73 sqM); Potassium 4.9 mmol/L (3.5-5.1); Sodium 132 mmol/L (137-145)
[2021-02-27] MEDS ORDERED: SODIUM CHLORIDE 0.9% 500 ML 500 ML with niCARdipine 6.25 MG, NITROGLYCERIN-D5W PMX 0.05... IV ONE ×4 (07:43)
[2021-02-27] MEDS: MIDAZOLAM 2 MG/2 ML VIAL IV ONE ×2 (08:12→08:22)
[2021-02-27] MEDS ORDERED: LIDOCAINE 1% INJ 10MG/ML (20 ML MDV) SQ ONE (08:13)
[2021-02-27] MEDS: HEPARIN SODIUM 1,000 UN/ML (10ML VL) IV ONE ×3 (08:16→10:13)
[2021-02-27] MEDS ORDERED: fentaNYL (PF) 50 MCG/ML 2 ML AMP IV ONE (08:45)
[2021-02-27] MEDS ORDERED: MIDAZOLAM 2 MG/2 ML VIAL IV ONE (09:03)
[2021-02-27] MEDS ORDERED: IOPAMIDOL-250 100ML BTL INTRAARTER ONE (10:57)
[2021-02-27] MEDS ORDERED: IBUPROFEN 800 MG TAB PO PRN (11:02)
[2021-02-27] MEDS ORDERED: NALOXONE 0.4 MG/ML 1 ML VIAL IVP PRN (11:03)
--- NOTE | 2021-02-27 11:28 | P.PCN ---
Date of Procedure: 02/27/21 Operative Findings: Percutaneous peripheral intervention Performing physician Shabbir Dunn M.D. Procedure performed #1 atherectomy of the left SFA using the Hawk 1 device #2 successful balloon angioplasty of the left SFA using 5 mm x 1 20 mm In-Pact drug-coated balloon with an excellent angiographic results #3 intravascular ultrasound IVUS of the left SFA #4 successful stenting of the left external iliac artery using 7 x 37 mm balloon expandable stent with an excellent angiographic results #5 intravascular ultrasound IVUS of the left external iliac artery #6 balloon angioplasty of the right external iliac artery #7 left lower extremity angiogram #8 ultrasound-guided access of the right common and right brachial artery Indication This 67-year-old female patient was known to have bilateral lower extremities intermittent claudication who underwent in the past successful stenting of the right and left common iliac arteries as well as prior angioplasty of the left SFA was experiencing bilateral lower extremities angiogram recently and that revealed severe disease involving the left external iliac artery and severe disease involving bilateral SFA. The patient was brought today to undergo a INSOLE TAPE STITCHER UCO of the left SFA. Approach Right common femoral artery Right brachial artery Complication None Level of sedation Moderate with a sedation length of 2 hours and 34 minutes. Please note that the procedure was complex and long. Procedure description After obtaining an informed consent the patient was brought to the cardiac microbiological lab technician. Under ultrasound guidance the right common femoral artery was cannulated using micropuncture technique, the micropuncture wire passed easily then I placed a 7 cm 6-[place] sheath. I did a predilatation using 6-[place] dilator initially. Subsequently anticoagulation was initiated using heparin with continuous ACT monitoring throughout the procedure. Attempting going up and over was unsuccessful because of the almost doubled [place] in the right and left common iliac arteries. For that reason I aborted the right common femoral approach and I decided to come from the right brachial artery. Also attempting accessing the pedals on the left side was unsuccessful. The right brachial artery was cannulated using micropuncture technique under ultrasound guidance, the micropuncture wire passed easily then I placed a 6- [place] 11 cm sheath at the right brachial artery. Subsequently and using a pigtail catheter I was able to detect my wire into the descending aorta and subsequently I exchanged my 11 cm sheath into a 90 cm 6- [place] sheath overall 35 stiff Glidewire. The wire was advanced to the right one and then right external iliac artery. With a backup support of 035 CXI catheter I was able to get the wire across the right external iliac artery to the right popliteal artery. Right lower 70 angiogram was performed and identified critical lesion involving the mid right SFA and occluded right external iliac artery and 3 vessels run off below the knee. I did balloon angioplasty of the right external iliac artery using 6 mm balloon. Subsequently I did intravascular ultrasound IVUS of the right SFA and right external iliac artery. That identified a 5 mm diameter of the right SFA and about 7 mm diameter of the right external iliac artery. Subsequently I did atherectomy of the right SFA and subsequently did balloon angioplasty using 5 mm x 120 mm drug-coated balloon with the following angiogram showing excellent angiographic results. Subsequently I deployed 7 x 37 mm balloon expandable stent where the stent was positioned under fluoroscopy guidance and deployed under its nominal pressure. The following angiogram showed an excellent angiographic results. There was a concern about the right iliac stent. Because of that I decided to balloon and the use a 6 mm balloon. The final angiogram showed good angiographic results as well. After that I did exchange my long sheath into short sheath which was 11 cm sheath. The procedure was completed without any complication Postprocedure management #1 INSOLE TAPE STITCHER UCO of the right SFA #2 Risk factors modification #3 Follow-up with the patient
--- NOTE | 2021-02-27 11:37 | IR ---
EXAMINATION TYPE: IR stent intravas non coronary DATE OF EXAM: 02/27/2021 COMPARISON: NONE HISTORY: Fluoroscopy time. Fluoroscopy 38.4 minutes was provided to the referring clinician.
[2021-02-27] MEDS ORDERED: SODIUM CHLORIDE 0.9% 1,000 ML in EMPTY BAG 1 BAG IV SCH (13:00)
[2021-02-27 16:42] LABS: Glucose,Whole Blood 270 mg/dL (75-99)
[2021-02-27 19:59] LABS: Glucose,Whole Blood 231 mg/dL (75-99)
[2021-02-27] MEDS ORDERED: MEMANTINE 5 MG TAB PO SCH (21:00)
[2021-02-27] MEDS ORDERED: ARIPiprazole 5 MG TAB PO SCH (21:00)
[2021-02-27] MEDS ORDERED: MIRTAZAPINE 15 MG TAB PO SCH (21:00)
[2021-02-27] MEDS ORDERED: ATORVASTATIN 40 MG TAB PO SCH (21:00)
[2021-02-27] MEDS ORDERED: INSULIN DETEMIR (LEVEMIR) 100 UNIT/ML SYR SQ SCH (21:00)
[2021-02-27] MEDS ORDERED: DONEPEZIL 10 MG TAB PO SCH (21:00)
[2021-02-27] MEDS ORDERED: PRIMIDONE 50 MG TAB PO SCH (21:00)
[2021-02-27] MEDS: GABAPENTIN 300 MG CAP PO SCH (21:38)
[2021-02-28 03:17] VITALS: TEMP 97.9
[2021-02-28 05:37] LABS: Glucose,Whole Blood 84 mg/dL (75-99)
[2021-02-28] MEDS: INSULIN ASPART (NovoLOG) 100 UNIT/ML VIAL SQ SCH (06:14)
[2021-02-28] MEDS: GABAPENTIN 300 MG CAP PO SCH (08:37)
[2021-02-28] MEDS ORDERED: CLOPIDOGREL 75 MG TAB PO SCH (09:00)
[2021-02-28] MEDS ORDERED: Empagliflozin [Jardiance] PO SCH (09:00)
[2021-02-28] MEDS ORDERED: LOSARTAN 50 MG TAB PO SCH (09:00)
[2021-02-28] MEDS ORDERED: FLUoxetine HCL 20 MG CAP PO SCH (09:00)
[2021-02-28] MEDS ORDERED: ASPIRIN 81 MG PO SCH (09:00)
--- NOTE | 2021-02-28 09:20 | P.DS ---
Providers Date of admission: February 272021 Attending physician: Shabbir Dunn Consults: 02/27/21 11:09 Consult Physician Routine Consulting Provider: Bijan Acosta Consult Reason/Comments: Pt known to Dr. Acosta/ DM control Do you want consulting provider notified?: Yes [facility]: [facility] Course: The patient is a 61-year-old female patient who was admitted to the hospital yesterday and underwent successful stenting of the left iliac along with successful angioplasty of the left SFA from right brachial approach. The patient was seen this morning. She is a stable hemodynamically. She is asymptomatic. The left foot/leg is warmer according to her. The right groin is soft and nontender and without any bruises. The right brachial artery appears to be soft as well with good pulse. The patient is going to be to be discharged on dual antiplatelet therapy along with a statin and I'll follow-up with the patient next week in the office Plan - Discharge Summary Discharge Rx Participant: No New Discharge Prescriptions: Continue Atorvastatin [Lipitor] 40 mg PO HS Ibuprofen [Motrin] 800 mg PO BID PRN PRN Reason: Pain Mirtazapine [Remeron] 15 mg PO HS Memantine [Namenda] 5 mg PO HS Losartan Potassium 100 mg PO DAILY Empagliflozin [Jardiance] 25 mg PO DAILY Gabapentin 300 mg PO BID Donepezil [Aricept] 10 mg PO HS Insulin Detemir (Levemir) [Levemir] 40 unit SQ HS Primidone [Mysoline] 75 mg PO HS FLUoxetine HCL [PROzac] 20 mg PO DAILY Clopidogrel [Plavix] 75 mg PO DAILY Aspirin EC [Ecotrin Low Dose] 81 mg PO DAILY ARIPiprazole [Abilify] 5 mg PO HS INSULIN ASPART (NovoLOG) [NovoLOG (formulary)] 0 unit SQ ACHS PRN PRN Reason: sliding scale Discontinued metFORMIN HCL [Glucophage] 1,000 mg PO BID Discharge Medication List Atorvastatin [Lipitor] 40 mg PO HS 08/08/16 [History] Ibuprofen [Motrin] 800 mg PO BID PRN 06/02/17 [History] ARIPiprazole [Abilify] 5 mg PO HS 08/30/20 [History] Aspirin EC [Ecotrin Low Dose] 81 mg PO DAILY 08/30/20 [History] Clopidogrel [Plavix] 75 mg PO DAILY 08/30/20 [History] Donepezil [Aricept] 10 mg PO HS 08/30/20 [History] Empagliflozin [Jardiance] 25 mg PO DAILY 08/30/20 [History] FLUoxetine HCL [PROzac] 20 mg PO DAILY 08/30/20 [History] Gabapentin 300 mg PO BID 08/30/20 [History] Losartan Potassium 100 mg PO DAILY 08/30/20 [History] Memantine [Namenda] 5 mg PO HS 08/30/20 [History] Mirtazapine [Remeron] 15 mg PO HS 08/30/20 [History] Primidone [Mysoline] 75 mg PO HS 08/30/20 [History] INSULIN ASPART (NovoLOG) [NovoLOG (formulary)] 0 unit SQ ACHS PRN 02/20/21 [History] Insulin Detemir (Levemir) [Levemir] 40 unit SQ HS 02/20/21 [History] Follow up Appointment(s)/Referral(s): Shabbir Dunn MD [STAFF PHYSICIAN] - 03/05/21 11:45 am Patient Instructions/Handouts: Peripheral Artery Disease (ED), Peripheral Vascular Angioplasty (DC), Procedural Sedation (ED) Activity/Diet/Wound Care/Special Instructions: *NO LIFTING, PUSHING, OR PULLING ANYTHING OVER 5 POUNDS FOR 5 DAYS *NO DRIVING FOR 3 DAYS *YOU CAN SHOWER TOMORROW BUT DO NOT SUBMERSE YOUR PUNCTURE SITE IN WATER FOR A FEW DAYS TO PREVENT INFECTION - SO NO TUB BATHS, POOLS, HOT TUBS, DISHES....ETC. *ANY SIGNS OF BLEEDING (HARDNESS, SWELLING, OR EXCESSIVE BRUISING) HOLD DIRECT PRESSURE ON YOUR PUNCTURE SITE AND COME TO THE NEAREST EMERGENCY ROOM TO GET YOUR PUNCTURE SITE LOOKED AT - DO NOT DRIVE YOURSELF! EITHER CALL EMS OR HAVE SOMEONE DRIVE YOU!
[2021-02-28 09:45] VITALS: BMI 23.4
[2021-02-28 10:45] VITALS: BP 136/72; PULSE 77; RESP 16
--- NOTE | 2021-02-28 10:56 | CONS ---
CONSULTATION HISTORY OF PRESENT ILLNESS: 61-year-old white female, status post angioplasty, PTCA of the femoral arteries bilaterally by Dr. Dunn for medical management consult. He had IR stent IV placed in the leg. She is having no chest pain, shortness of breath. Sugars in the 400s. She will be placed on Accu-Chek protocol. She takes insulin shot at home daily. Her labs have been high. She is breathing good. No chest pain. No shortness of breath. Mentally, she appears to be normal. Temperature 97.9, respiratory rate 18, blood pressure is 130 is 140s over 60s. O2 96 on room air. Cardiovascular S1, S2. Lungs clear. GI soft. Hematology negative Homans. Psych: Fair mood and affect. ASSESSMENT: 1. Insulin-dependent diabetes mellitus. 2. Fem-fem PAD. Status post angioplasty. 3. Hypertension. 4. Chronic obstructive pulmonary disease. 5. Nicotine addiction. 6. Essential tremor. Continue current treatments. Home medicines will be given. Accu-Chek protocol. She appears to be stable from a physical standpoint at this point. MMODL / IJN: [id number] /
== END 2021-02-28 10:11 | disposition home or self-care (01) ==
LOC: CATHCVL 06:20 → 3SCARD 10:55 → CATHCVL 02-28 10:11
PROVIDERS: ATTEND Internal Medicine Interventional Cardiology
DX: I70.213 Atherosclerosis of native arteries of extremities with intermittent claudication, bilateral legs (principal); E11.51 Type 2 diabetes mellitus with diabetic peripheral angiopathy without gangrene; I10 Essential (primary) hypertension; E78.5 Hyperlipidemia, unspecified; Z20.822 Contact with and (suspected) exposure to COVID-19; Z86.73 Personal history of transient ischemic attack (TIA), and cerebral infarction without residual deficits; F17.200 Nicotine dependence, unspecified, uncomplicated; Z95.820 Peripheral vascular angioplasty status with implants and grafts; Z79.899 Other long term (current) drug therapy; Z79.84 Long term (current) use of oral hypoglycemic drugs; Z79.02 Long term (current) use of antithrombotics/antiplatelets; Z79.4 Long term (current) use of insulin
CPT/HCPCS: 37221; 37225; 37252; 37253; 80048; 85025; 87635; C1894 ×5; C1769 ×6; C1725 ×2; C1714; C1753; C2623; C1876; J2250; J2001; J3010; J1644; Q9966

== ENCOUNTER 2021-03-20 08:59 | Day surgery (SDC) | payer MEDICARE, OTHER ==
[2021-03-20] MEDS: SODIUM CHLORIDE 0.9% 1,000 ML in EMPTY BAG 1 BAG IV ONE ×2 (09:12→13:31)
[2021-03-20] MEDS ORDERED: ASPIRIN 325 MG TAB ONE (09:23)
[2021-03-20 09:28] LABS: Glucose,Whole Blood 290 mg/dL (75-99)
[2021-03-20] MEDS ORDERED: INSULIN ASPART (NovoLOG) 100 UNIT/ML VIAL SQ ONE (09:28)
[2021-03-20] MEDS ORDERED: CLOPIDOGREL 75 MG TAB ONE ×2 (09:33→12:43)
[2021-03-20 09:45] LABS: Basophils # (A) 0.1 k/uL (0-0.2); Basophils % (A) 1 %; Eosinophils # (A) 0.2 k/uL (0-0.7); Eosinophils % (A) 2 %; HCT 52.5 % (34.0-46.0); HGB 17.4 gm/dL (11.4-16.0); Lymphocytes # (A) 2.7 k/uL (1.0-4.8); Lymphocytes % (A) 23 %; MCH 31.4 pg (25.0-35.0); MCHC 33.2 g/dL (31.0-37.0); MCV 94.5 fL (80.0-100.0); Mean Platelet Volume 8.6; Monocytes # (A) 0.7 k/uL (0-1.0); Monocytes % (A) 6 %; Neutrophils # (A) 7.8 k/uL (1.3-7.7); Neutrophils % (A) 68 %; Platelet Count 171 k/uL (150-450); RBC 5.56 m/uL (3.80-5.40); RDW 14.1 % (11.5-15.5); WBC 11.5 k/uL (3.8-10.6)
[2021-03-20 10:09] LABS: Carbon Dioxide 27 mmol/L (22-30); Chloride 98 mmol/L (98-107); Glucose 335 mg/dL (74-99); Potassium 4.1 mmol/L (3.5-5.1); Sodium 133 mmol/L (137-145)
[2021-03-20 10:10] LABS: African American GFR (CKD) >90 (>60 ml/min/1.73 sqM); Anion Gap 8 mmol/L; Blood Urea Nitrogen 23 mg/dL (7-17); Calcium 10.1 mg/dL (8.4-10.2); Non-African American GFR(CKD) >90 (>60 ml/min/1.73 sqM)
[2021-03-20] MEDS ORDERED: niCARdipine 25 MG/10 ML VIAL ONE (10:27)
[2021-03-20] MEDS ORDERED: LIDOCAINE 1% INJ 10MG/ML (20 ML MDV) ONE (10:27)
[2021-03-20] MEDS ORDERED: HEPARIN SODIUM 1,000 UN/ML (10ML VL) ONE (10:30)
[2021-03-20] MEDS ORDERED: SODIUM CHLORIDE 0.9% 500 ML 500 ML with niCARdipine 6.25 MG, NITROGLYCERIN-D5W PMX 0.05... IV ONE ×4 (10:37)
[2021-03-20] MEDS ORDERED: HYDROmorphone 1 MG/ML 1 ML SYRINGE IVP ONE (10:49)
[2021-03-20] MEDS: MIDAZOLAM 2 MG/2 ML VIAL IV ONE ×2 (10:49→11:40)
[2021-03-20] MEDS ORDERED: LIDOCAINE 1% INJ 10MG/ML (20 ML MDV) SQ ONE (10:59)
[2021-03-20] MEDS ORDERED: IOPAMIDOL-250 100ML BTL INTRAARTER ONE (12:25)
[2021-03-20] MEDS ORDERED: IBUPROFEN 800 MG TAB PO PRN (12:52)
[2021-03-20] MEDS ORDERED: NALOXONE 0.4 MG/ML 1 ML VIAL IVP PRN (12:53)
[2021-03-20] MEDS ORDERED: SODIUM CHLORIDE 0.9% 1,000 ML in EMPTY BAG 1 BAG IV SCH (13:00)
--- NOTE | 2021-03-20 13:07 | P.PCN ---
Date of Procedure: 03/20/21 Operative Findings: PERCUTANEOUS PERIPHERAL INTERVENTION Performing physician Shabbir Dunn M.D. Procedure performed #1 an atherectomy of the right SFA and right popliteal using the Hawk 1 device with the extraction of significant plaque #2 intravascular ultrasound of the right SFA and right popliteal #3 successful balloon angioplasty of the right SFA and the right popliteal #4 selective angiogram of the right anterior tibial, posterior tibial, right SFA and the right popliteal, and left common femoral artery #5 ultrasound guided access of the left common femoral artery #6 ultrasound guided access of the right anterior tibial artery Indication Intermittent claudication seems to be disabling and interfering with the patient physical activities in this 61-year-old female patient was found to have severe disease involving the right SFA and right popliteal Approach Left common femoral artery and right anterior tibial artery Complications None Level of sedation Moderate with a sedation time of 120 minutes Procedure description After obtaining an informed consent the patient was brought to the cardiac labor gang supervisor. The left common femoral artery was cannulated using micropuncture technique, the micropuncture wire passed easily then I placed a 6-[place] 11 cm sheath at the left common femoral artery. At that point anticoagulation was initiated using heparin with continuous ACT monitoring. Attempting selective right SFA using 035 stiff Glidewire with a backup support of a run and Omni Flush catheter was unsuccessful because the patient has bilateral iliac stents. Because of that the above and over approach was aborted and I decided to go from and pedal approach. Attempting accessing the right posterior tibial artery was unsuccessful I ended going from the right anterior tibial artery. The right anterior tibial artery was cannulated using puncture technique under ultrasound guidance, Vladimir puncture wire passed easily then I placed a slender 5/6-[place] sheath in the right anterior tibial artery. At that point continuous infusion of a cocktail containing heparin and nitroglycerin and verapamil was initiated. After that I did selective right anterior tibial artery to prove that I was in the right structure. Subsequently I did wire the right SFA and right popliteal and that was performed using 014 wire which was advanced all the way to the right common femoral artery. Subsequently I did right lower extremities angiogram. That revealed severe disease involving the right SFA and right popliteal. After that I did intravascular ultrasound which revealed 2 lesions involving the right SFA and right popliteal. Atherectomy was performed using the directional atherectomy device with extraction of significant plaque. After that balloon angioplasty was performed using 6 [employer] balloon. Subsequently drug-coated balloon which was 5 x 60 mm was applied. The final angiogram showed good angiographic results for the right SFA and right popliteal. Completion below the knee angiogram was performed and showed occluded distal left posterior tibial artery. I was able to go from the ATT the PT using 014 wire then I did inject nitroglycerin and verapamil in the posterior tibial artery directly with the following angiogram showed the opening of the PT with good flow all the way to the foot. At that point the procedure was completed without any complications Postprocedure management #1 dual antiplatelet therapy #2 aggressive cholesterol control #3 risk factors modification #4 follow-up with the patient
[2021-03-20] MEDS: NICOTINE 21MG/24HR PATCH TRANSDERM SCH (13:29)
--- NOTE | 2021-03-20 13:51 | IR ---
Fluoroscopy HISTORY: Pain in right leg 28.9 minutes fluoroscopy time supplied to the referring clinician. 581 intraoperative C-arm images d ocument the procedure. See dictated report from cardiology.
[2021-03-20 17:20] LABS: Glucose,Whole Blood 174 mg/dL (75-99)
[2021-03-20 20:45] LABS: Glucose,Whole Blood 213 mg/dL (75-99)
[2021-03-20] MEDS ORDERED: MEMANTINE 5 MG TAB PO SCH (21:00)
[2021-03-20] MEDS ORDERED: PRIMIDONE 25 MG TAB PO SCH (21:00)
[2021-03-20] MEDS ORDERED: ATORVASTATIN 40 MG TAB PO SCH (21:00)
[2021-03-20] MEDS ORDERED: MIRTAZAPINE 15 MG TAB PO SCH (21:00)
[2021-03-20] MEDS ORDERED: INSULIN DETEMIR (LEVEMIR) 100 UNIT/ML SYR SQ SCH (21:00)
[2021-03-20] MEDS ORDERED: DONEPEZIL 10 MG TAB PO SCH (21:00)
[2021-03-20] MEDS ORDERED: ARIPiprazole 5 MG TAB PO SCH (21:00)
[2021-03-20] MEDS: GABAPENTIN 300 MG CAP PO SCH (21:48)
[2021-03-21] MEDS: NICOTINE 21MG/24HR PATCH TRANSDERM SCH (08:20)
[2021-03-21] MEDS: GABAPENTIN 300 MG CAP PO SCH (08:21)
[2021-03-21 08:24] LABS: Glucose,Whole Blood 111 mg/dL (75-99)
[2021-03-21 08:50] VITALS: BP 116/59; PULSE 80; RESP 18; TEMP 98.1
[2021-03-21] MEDS ORDERED: LOSARTAN 50 MG TAB PO SCH (09:00)
[2021-03-21] MEDS ORDERED: ASPIRIN 81 MG PO SCH (09:00)
[2021-03-21] MEDS ORDERED: FLUoxetine HCL 20 MG CAP PO SCH (09:00)
[2021-03-21] MEDS ORDERED: CLOPIDOGREL 75 MG TAB PO SCH (09:00)
[2021-03-21] MEDS ORDERED: Empagliflozin [Jardiance] PO SCH (09:00)
[2021-03-21 10:09] LABS: Basophils % (A) 0 %; Eosinophils # (A) 0.2 k/uL (0-0.7); Eosinophils % (A) 2 %; HGB 14.8 gm/dL (11.4-16.0); Lymphocytes # (A) 2.1 k/uL (1.0-4.8); Lymphocytes % (A) 26 %; MCHC 32.9 g/dL (31.0-37.0); MCV 94.2 fL (80.0-100.0); Mean Platelet Volume 8.4; Monocytes # (A) 0.6 k/uL (0-1.0); Monocytes % (A) 8 %; Neutrophils % (A) 62 %; Platelet Count 119 k/uL (150-450); RBC 4.78 m/uL (3.80-5.40); RDW 14.2 % (11.5-15.5); WBC 8.1 k/uL (3.8-10.6)
--- NOTE | 2021-03-21 10:15 | P.DS ---
Providers Date of admission: March 20 Attending physician: Shabbir Dunn Consults: 03/20/21 12:55 Consult Physician Routine Consulting Provider: Bijan Acosta Consult Reason/Comments: Medical management Do you want consulting provider notified?: Yes, Notify in am Primary care physician: Bijan Acosta [facility] Course: The patient is a pleasant 61-year-old female who was admitted to the hospital yesterday and underwent a successful atherectomy and ENGINE MAINTENANCE MECHANIC of the right SFA from and pedal approach. She was seen this morning. She is doing good. The left groin and right pedal are soft and nontender. The patient's going to be discharged home on dual antiplatelet therapy and I will follow-up with the patient next week in the office Plan - Discharge Summary New Discharge Prescriptions: Continue Atorvastatin [Lipitor] 40 mg PO HS Ibuprofen [Motrin] 800 mg PO BID PRN PRN Reason: Pain Mirtazapine [Remeron] 15 mg PO HS Memantine [Namenda] 5 mg PO HS Losartan Potassium 100 mg PO DAILY Empagliflozin [Jardiance] 25 mg PO DAILY Gabapentin 300 mg PO BID Donepezil [Aricept] 10 mg PO HS Insulin Detemir (Levemir) [Levemir] 40 unit SQ HS Primidone [Mysoline] 75 mg PO HS FLUoxetine HCL [PROzac] 20 mg PO DAILY Clopidogrel [Plavix] 75 mg PO DAILY Aspirin EC [Ecotrin Low Dose] 81 mg PO DAILY ARIPiprazole [Abilify] 5 mg PO HS Discharge Medication List Atorvastatin [Lipitor] 40 mg PO HS 08/08/16 [History] Ibuprofen [Motrin] 800 mg PO BID PRN 06/02/17 [History] ARIPiprazole [Abilify] 5 mg PO HS 08/30/20 [History] Aspirin EC [Ecotrin Low Dose] 81 mg PO DAILY 08/30/20 [History] Clopidogrel [Plavix] 75 mg PO DAILY 08/30/20 [History] Donepezil [Aricept] 10 mg PO HS 08/30/20 [History] Empagliflozin [Jardiance] 25 mg PO DAILY 08/30/20 [History] FLUoxetine HCL [PROzac] 20 mg PO DAILY 08/30/20 [History] Gabapentin 300 mg PO BID 08/30/20 [History] Losartan Potassium 100 mg PO DAILY 08/30/20 [History] Memantine [Namenda] 5 mg PO HS 08/30/20 [History] Mirtazapine [Remeron] 15 mg PO HS 08/30/20 [History] Primidone [Mysoline] 75 mg PO HS 08/30/20 [History] Insulin Detemir (Levemir) [Levemir] 40 unit SQ HS 02/20/21 [History] Follow up Appointment(s)/Referral(s): Shabbir Dunn MD [STAFF PHYSICIAN] - 03/26/21 9:45 am
[2021-03-21 10:32] LABS: African American GFR (CKD) >90 (>60 ml/min/1.73 sqM); Anion Gap 4 mmol/L; Blood Urea Nitrogen 15 mg/dL (7-17); Carbon Dioxide 28 mmol/L (22-30); Chloride 103 mmol/L (98-107); Glucose 142 mg/dL (74-99); Non-African American GFR(CKD) >90 (>60 ml/min/1.73 sqM); Sodium 135 mmol/L (137-145)
--- NOTE | 2021-03-21 22:46 | P.CONS ---
History of Present Illness - Reason for Consult Consult date: 03/21/21 Medical management Requesting physician: Shabbir Dunn - Chief Complaint Peripheral intervention - History of Present Illness This is a 61-year-old patient, follows with Dr. Bijan Acosta. Chronic stable medical conditions include diabetes, mild cognitive impairment, osteoarthritis, PAD,. Patient had a stroke in 2020 since then she's had some tremor in the right hand. Some memory loss. Patient continues to smoke. Patient having claudication pain in the right leg. She gets this after walking one block. Does use 2 L of oxygen at night. Patient has trouble especially writing with the right hand. Patient has undergone peripheral artery intervention by Dr. Mac. Postprocedure doing well. No pain. Breathing is stable. No chest pain. Had a breakfast. No nausea vomiting. Review of systems: GEN.: None EYES: None HEENT: None NECK: None RESPIRATORY: Occasional cough CARDIOVASCULAR: None GASTROINTESTINAL: None GENITOURINARY: None MUSCULOSKELETAL: Joint pains LYMPHATICS: None HEMATOLOGICAL: None PSYCHIATRY: Bit forgetful NEUROLOGICAL: None Past medical history to include: Diabetes, cognitive impairment, osteoarthritis, PAD, stroke with some right-side d tremor and some memory loss bipolar Social history: Lives alone smokes a pack a day since age of 19. Alcohol rarely. Family history: DVT Physical examination: VITAL SIGNS: 98.1, 80, 18, 116/59, 96% room air GENERAL: BMI 22.8, sitting at the edge of bed, awake, comfortable. EYES: Pupils equal. Conjunctiva normal. HEENT: External appearance of nose and ears normal, oral cavity grossly normal. NECK: JVD not raised; masses not palpable. HEART: First and second heart sounds are normal; no edema. LUNGS: Respiratory rate normal; decreased breath sounds. ABDOMEN: Soft, nontender, liver spleen not palpable, no masses palpable. PSYCH: Alert and oriented x3; mood and affect normal. MUSCULOSKELETAL:No Clubbing/cyanosis;muscles-grossly intact. Evidence of OA NEUROLOGICAL: Cranial nerves grossly intact; no facial asymmetry, power and sensation grossly intact. Some tremor in the right arm. LYMPHATICS: No lymph nodes palpable in the axilla and neck INVESTIGATIONS, reviewed in the clinical context: White count 8.1 hemoglobin 14.8 platelets 119 potassium 4 creatinine 0.58 Accu-Cheks noted Assessment and plan: -Intermittent claudication with patient having pain about walking a block. -Right superficial femoral artery and right to. She'll artery atherectomy, balloon angioplasty. -Emphysema in a smoker, with symptoms controlled Use albuterol when necessary down the road if needed -Chronic nicotine dependence, sed rate smoker Nicotine patch -Diabetes mellitus type 2 chronically on insulin Follow Accu-Cheks. Resume oral hypoglycemics -Hyperlipidemia Lipitor 40 mg daily at bedtime -Cognitive impairment due to Alzheimer's dementia Namenda, Aricept -Tremor of the right down following stroke Mysoline 75 mg daily at bedtime -Depression and anxiety Prozac 20 mg a day -Peripheral neuropathy, gabapentin 300 mg twice a day Home medications resumed. Accu-Cheks were followed. Patient should follow with her family doctor point discharge. Counseled about smoking. Nicotine patch prescription given. Thank you Dr. Mac Smoke cessation counseling: This was done with the patient. Nicotine patch is being given. More than 3 minutes was spent for this Past Medical History Past Medical History: CVA/TIA, Diabetes Mellitus, Memory Impairment, Osteoarthritis (OA), Vascular Disorder Additional Past Medical History / Comment(s): PAD. rt hand tremor and memory loss since TIA/CVA IN 2019 History of Any Multi-Drug Resistant Organisms: None Reported Past Surgical History: Section, Hysterectomy Additional Past Surgical History / Comment(s): Ceserean section X3, partial hyst and bilateral stents in legs. Past Anesthesia/Blood Transfusion Reactions: No Reported Reaction Past Psychological History: ADD/ADHD, Anxiety, Bipolar, Depression Smoking Status: Current every day smoker Past Alcohol Use History: Rare Additional Past Alcohol Use History / Comment(s): Has been smoking 1 PPD since 19 yrs of age. Past Drug Use History: None Reported - Past Family History Mother Family Medical History: Deep Vein Thrombosis (DVT) Medications and Allergies Home Medications Medication Instructions Recorded Confirmed Type Atorvastatin [Lipitor] 40 mg PO HS 08/08/16 03/20/21 History Ibuprofen [Motrin] 800 mg PO BID PRN 06/02/17 03/20/21 History ARIPiprazole [Abilify] 5 mg PO HS 08/30/20 03/20/21 History Aspirin EC [Ecotrin Low Dose] 81 mg PO DAILY 08/30/20 03/20/21 History Clopidogrel [Plavix] 75 mg PO DAILY 08/30/20 03/20/21 History Donepezil [Aricept] 10 mg PO HS 08/30/20 03/20/21 History Empagliflozin [Jardiance] 25 mg PO DAILY 08/30/20 03/20/21 History FLUoxetine HCL [PROzac] 20 mg PO DAILY 08/30/20 03/20/21 History Gabapentin 300 mg PO BID 08/30/20 03/20/21 History Losartan Potassium 100 mg PO DAILY 08/30/20 03/20/21 History Memantine [Namenda] 5 mg PO HS 08/30/20 03/20/21 History Mirtazapine [Remeron] 15 mg PO HS 08/30/20 03/20/21 History Primidone [Mysoline] 75 mg PO HS 08/30/20 03/20/21 History Insulin Detemir (Levemir) [Levemir] 40 unit SQ HS 02/20/21 03/20/21 History Nicotine 21Mg/24Hr Patch [Habitrol] 1 patch TRANSDERM DAILY #14 patch 03/21/21 Rx Allergies Allergy/AdvReac Type Severity Reaction Status Date / Time No Known Allergies Allergy Verified 02/27/21 06:44 Physical Exam Vitals: Vital Signs Temp Pulse Pulse Resp BP Pulse Ox 03/21/21 07:00 98.1 F 80 18 116/59 96 03/21/21 02:20 98.4 F 73 16 119/43 93 L Intake and Output 03/21/21 03/21/21 03/21/21 06:59 14:59 22:59 Other: Voiding Method Toilet # Voids 1 1 Results CBC & Chem 7: 03/21/21 09:40 03/21/21 09:40 Labs: Abnormal Lab Results - Last 24 Hours (Table) 03/21/21 03/21/21 03/21/21 Range/Units 07:20 09:40 09:40 Plt Count 119 L (150-450) k/uL Sodium 135 L (137-145) mmol/L Glucose 142 H (74-99) mg/dL POC Glucose (mg/dL) 111 H (75-99) mg/dL
== END 2021-03-21 11:38 | disposition home or self-care (01) ==
LOC: CATHCVL 08:59 → 6NMEDSUR 15:20 → CATHCVL 03-21 11:38
PROVIDERS: ATTEND Internal Medicine Interventional Cardiology
DX: I73.9 Peripheral vascular disease, unspecified (principal); Z20.822 Contact with and (suspected) exposure to COVID-19
CPT/HCPCS: 92924; 80048; 85025; 87635; S4990; J2250; J2001; J1170; J1644 ×2; Q9966; 37225; 37252

== ENCOUNTER 2023-07-14 22:29 | Observation (INO) | payer MEDICARE, OTHER ==
--- NOTE | 2023-07-15 00:07 | XR ---
EXAMINATION TYPE: XR foot complete LT DATE OF EXAM: 07/15/2023 CLINICAL HISTORY: r/o osteo TECHNIQUE: Frontal, lateral, and oblique images of the left foot are obtained. COMPARISON: None FINDINGS: Amputation defect second and third toes is seen. No acute displaced fracture. No suspicious bony destruction. Overlying soft tissue is unremarkable. IMPRESSION: There is no suspicious bony destruction to suggest acute osteomyelitis. If clinical susp icion persists further investigation with 3 phase bone scan and/or MRI study may BE warranted.
[2023-07-15] MEDS: ERTAPENEM 1 GM in SODIUM CHLORIDE 0.9% 50 ML IVPB STA (00:39)
[2023-07-15 01:07] LABS: Basophils # (A) 0.1 k/uL (0-0.2); Basophils % (A) 1 %; Eosinophils # (A) 0.3 k/uL (0-0.7); Eosinophils % (A) 3 %; HCT 37.9 % (34.0-46.0); HGB 12.2 gm/dL (11.4-16.0); Lymphocytes # (A) 1.8 k/uL (1.0-4.8); Lymphocytes % (A) 17 %; MCH 28.3 pg (25.0-35.0); MCHC 32.3 g/dL (31.0-37.0); MCV 87.5 fL (80.0-100.0); Mean Platelet Volume 8.1; Monocytes # (A) 0.7 k/uL (0-1.0); Monocytes % (A) 7 %; Neutrophils # (A) 7.8 k/uL (1.3-7.7); Neutrophils % (A) 72 %; Platelet Count 316 k/uL (150-450); Poikilocytosis Slight; RBC 4.32 m/uL (3.80-5.40); RDW 14.3 % (11.5-15.5); WBC 10.9 k/uL (3.8-10.6)
[2023-07-15 01:10] LABS: Potassium 4.1 mmol/L (3.5-5.1); Sodium 133 mmol/L (137-145)
[2023-07-15 01:12] LABS: ALT 23 U/L (4-34); AST 18 U/L (14-36); African American GFR (CKD) >90 (>60 ml/min/1.73 sqM); Albumin 3.5 g/dL (3.5-5.0); Alkaline Phosphatase 243 U/L (38-126); Anion Gap 9 mmol/L; Blood Urea Nitrogen 24 mg/dL (7-17); Calcium 9.3 mg/dL (8.4-10.2); Carbon Dioxide 26 mmol/L (22-30); Chloride 98 mmol/L (98-107); Glucose 240 mg/dL (74-99); Non-African American GFR(CKD) >90 (>60 ml/min/1.73 sqM); Total Bilirubin 0.4 mg/dL (0.2-1.3); Total Protein 6.8 g/dL (6.3-8.2)
--- NOTE | 2023-07-15 02:56 | ED ---
General Adult HPI - General Chief complaint: Recheck/Abnormal Lab/Rx Stated complaint: pic line issues,Hyperglycemia Time Seen by Provider: 07/14/23 23:00 Source: patient Mode of arrival: EMS Limitations: no limitations - History of Present Illness Initial comments: 63-year-old female presenting to the ED with complaints of PICC line malfunction. Reports she has been getting ertapenem for the past 2 weeks secondary to left foot ulcers. Today, states that she was unable to get her IV antibiotics to pass through her PICC line. Otherwise has not missed any doses. She also does report that despite IV antibiotics she has had worsening pain of her left foot. Denies fever or chills. No chest pain or shortness of breath. No other complaints at this time. - Related Data Home Medications Medication Instructions Recorded Confirmed Atorvastatin [Lipitor] 40 mg PO HS 08/08/16 03/20/21 Ibuprofen [Motrin] 800 mg PO BID PRN 06/02/17 03/20/21 ARIPiprazole [Abilify] 5 mg PO HS 08/30/20 03/20/21 Aspirin EC [Ecotrin Low Dose] 81 mg PO DAILY 08/30/20 03/20/21 Clopidogrel [Plavix] 75 mg PO DAILY 08/30/20 03/20/21 Donepezil [Aricept] 10 mg PO HS 08/30/20 03/20/21 Empagliflozin [Jardiance] 25 mg PO DAILY 08/30/20 03/20/21 FLUoxetine HCL [PROzac] 20 mg PO DAILY 08/30/20 03/20/21 Gabapentin 300 mg PO BID 08/30/20 03/20/21 Losartan Potassium 100 mg PO DAILY 08/30/20 03/20/21 Memantine [Namenda] 5 mg PO HS 08/30/20 03/20/21 Mirtazapine [Remeron] 15 mg PO HS 08/30/20 03/20/21 Primidone [Mysoline] 75 mg PO HS 08/30/20 03/20/21 Insulin Detemir (Levemir) [Levemir] 40 unit SQ HS 02/20/21 03/20/21 Previous Rx's Medication Instructions Recorded Nicotine 21Mg/24Hr Patch [Habitrol] 1 patch TRANSDERM DAILY #14 patch 03/21/21 Allergies Allergy/AdvReac Type Severity Reaction Status Date / Time No Known Allergies Allergy Verified 07/14/23 22:50 Review of Systems ROS Statement: Those systems with pertinent positive or pertinent negative responses have been documented in the HPI. ROS Other: All systems not noted in ROS Statement are negative. Past Medical History Past Medical History: CVA/TIA, Diabetes Mellitus, Memory Impairment, Osteoarthritis (OA), Vascular Disorder Additional Past Medical History / Comment(s): PAD. rt hand tremor and memory loss since TIA/CVA IN 2019 History of Any Multi-Drug Resistant Organisms: None Reported Past Surgical History: Section, Hysterectomy Additional Past Surgical History / Comment(s): Ceserean section X3, partial hyst and bilateral stents in legs. Past Anesthesia/Blood Transfusion Reactions: No Reported Reaction Past Psychological History: ADD/ADHD, Anxiety, Bipolar, Depression Smoking Status: Current every day smoker Past Alcohol Use History: Rare Past Drug Use History: None Reported - Past Family History Mother Family Medical History: Deep Vein Thrombosis (DVT) General Exam Limitations: no limitations General appearance: alert, in no apparent distress Eye exam: Present: normal appearance Neck exam: Present: normal inspection Respiratory exam: Present: normal lung sounds bilaterally Cardiovascular Exam: Present: regular rate GI/Abdominal exam: Present: soft Extremities exam: Present: other (Left foot shows ulceration with purulent discharge.) Neurological exam: Present: alert, oriented X3 Skin exam: Present: warm, dry Course Vital Signs 07/14/23 07/15/23 22:48 00:46 Temperature 98.1 F Pulse Rate 82 80 Respiratory 20 16 Rate Blood Pressure 97/63 114/54 O2 Sat by Pulse 100 96 Oximetry Medical Decision Making - Medical Decision Making Was pt. sent in by a medical professional or institution (, PA, HOST/HOSTESS GROUND, urgent care, hospital, or longterm...) When possible be specific @ -No Did you speak to anyone other than the patient for history (EMS, parent, family, police, friend...)? What history was obtained from this source @ -No Did you review nursing and triage notes (agree or disagree)? Why? @ -I reviewed and agree with nursing and triage notes Were old charts reviewed (outside hosp., previous admission, EMS record, old EKG, old radiological studies, urgent care reports/EKG's, longterm records)? Report findings @ -No old charts were reviewed Differential Diagnosis (chest pain, altered mental status, abdominal pain women, abdominal pain men, vaginal bleeding, weakness, fever, dyspnea, syncope, headache, dizziness, GI bleed, back pain, seizure, CVA, palpatations, mental health, musculoskeletal)? @ -Differential Musculoskeletal Muscular strain, contusion, ligament sprain, fracture, arthritis, septic arthritis, bursitis, cellulitis, muscle spasm, nerve compression, DVT, arterial occlusion, herpes zoster, electrolyte abnormality, tumor.... This is not meant to be in all inclusive list EKG interpreted by me (3pts min.). @ -None X-rays interpreted by me (1pt min.). @ -X-ray of the foot interpreted me which revealed no acute findings. CT interpreted by me (1pt min.). @ -None done U/S interpreted by me (1pt. min.). @ -None done What testing was considered but not performed or refused? (CT, X-rays, U/S, labs)? Why? @ -None What meds were considered but not given or refused? Why? @ -None Did you discuss the management of the patient with other professionals (professionals i.e. , PA, HOST/HOSTESS GROUND, lab, RT, psych nurse, social work program coordinator, manager studio, teacher, division officer weapons department, transplant case manager)? Give summary @ -No Was smoking cessation discussed for >3mins.? @ -No Was critical care preformed (if so, how long)? @ -No Were there social determinants of health that impacted care today? How? (Homeles sness, low income, unemployed, alcoholism, drug addiction, transportation, low edu. Level, literacy, decrease access to med. care, skilled nursing, rehab)? @ -No Was there de-escalation of care discussed even if they declined (Discuss DNR or withdrawal of care, Hospice)? DNR status @ -No What co-morbidities impacted this encounter? (DM, HTN, Smoking, COPD, CAD, Cancer, CVA, ARF, Chemo, Hep., AIDS, mental health diagnosis, sleep apnea, morbid obesity)? @ -PAD Was patient admitted / discharged? Hospital course, mention meds given and route, prescriptions, significant lab abnormalities, going to OR and other pertinent info. @ -Admission 63-year-old female presenting to the ED with complaints of PICC line malfunction and also worsening left foot pain despite otherwise being able to use ertapenem as prescribed. On examination she does have ulcerative lesions with purulent discharge. Wound culture obtained. Laboratory studies reviewed. CBC does show an elevated white blood cell count 10.9. Chemistry panel largely unremarkable. Lactic acid 1.7. Patient provided dose of ertapenem here. Line was flushed successfully. Patient will be admitted with consult to infectious disease. Undiagnosed new problem with uncertain prognosis? @ -No Drug Therapy requiring intensive monitoring for toxicity (Heparin, Nitro, Insulin, Cardizem)? @ -No Were any procedures done? @ -No Diagnosis/symptom? @ -Left foot infection, failure of outpatient treatment Acute, or Chronic, or Acute on Chronic? @ -Acute Uncomplicated (without systemic symptoms) or Complicated (systemic symptoms)? @ -Uncomplicated Side effects of treatment? @ -No Exacerbation, Progression, or Severe Exacerbation? @ -No Poses a threat to life or bodily function? How? (Chest pain, USA, HI, pneumonia, PE, COPD, DKA, ARF, appy, cholecystitis, CVA, Diverticulitis, Homicidal, Suicidal, threat to staff... and all critical care pts) @ -Possibly - Lab Data Result diagrams: 07/15/23 00:06 07/15/23 00:06 Lab Results 07/15/23 07/15/23 07/15/23 Range/Units 00:06 00:06 00:06 WBC 10.9 H (3.8-10.6) k/uL RBC 4.32 (3.80-5.40) m/uL Hgb 12.2 (11.4-16.0) gm/dL Hct 37.9 (34.0-46.0) % MCV 87.5 (80.0-100.0) fL MCH 28.3 (25.0-35.0) pg MCHC 32.3 (31.0-37.0) g/dL RDW 14.3 (11.5-15.5) % Plt Count 316 (150-450) k/uL MPV 8.1 Neutrophils % 72 % Lymphocytes % 17 % Monocytes % 7 % Eosinophils % 3 % Basophils % 1 % Neutrophils # 7.8 H (1.3-7.7) k/uL Lymphocytes # 1.8 (1.0-4.8) k/uL Monocytes # 0.7 (0-1.0) k/uL Eosinophils # 0.3 (0-0.7) k/uL Basophils # 0.1 (0-0.2) k/uL Poikilocytosis Slight Sodium 133 L (137-145) mmol/L Potassium 4.1 (3.5-5.1) mmol/L Chloride 98 (98-107) mmol/L Carbon Dioxide 26 (22-30) mmol/L Anion Gap 9 mmol/L BUN 24 H (7-17) mg/dL Creatinine 0.48 L (0.52-1.04) mg/dL Est GFR (CKD-EPI)AfAm >90 (>60 ml/min/1.73 sqM) Est GFR (CKD-EPI)NonAf >90 (>60 ml/min/1.73 sqM) Glucose 240 H (74-99) mg/dL Plasma Lactic Acid Matt 1.7 (0.7-2.0) mmol/L Calcium 9.3 (8.4-10.2) mg/dL Total Bilirubin 0.4 (0.2-1.3) mg/dL AST 18 (14-36) U/L ALT 23 (4-34) U/L Alkaline Phosphatase 243 H (38-126) U/L Total Protein 6.8 (6.3-8.2) g/dL Albumin 3.5 (3.5-5.0) g/dL Disposition Clinical Impression: Left foot infection Disposition: ADMITTED IP TO THIS [facility] Condition: Good Referrals: Bijan Acosta MD [Primary Care Provider] - 1-2 days Time of Disposition: 02:00
[2023-07-15] MEDS: ALTEPLASE 2 MG VIAL (CATHFLO) IV STA (03:04)
[2023-07-15] MEDS ORDERED: NALOXONE 0.4 MG/ML 1 ML VIAL IV PRN (03:05)
[2023-07-15] MEDS ORDERED: HYDROmorphone 0.5 MG/0.5 ML SYRINGE IVP PRN (03:05)
[2023-07-15] MEDS ORDERED: ACETAMINOPHEN TAB 325 MG TAB PO PRN (03:05)
[2023-07-15] MEDS ORDERED: ONDANSETRON 4 MG/2 ML VIAL IVP PRN (03:05)
[2023-07-15] MEDS ORDERED: HYDROmorphone 1 MG/ML 1 ML SYRINGE IVP PRN (03:05)
[2023-07-15] MEDS: SODIUM CHLORIDE 0.9% 1,000 ML IV SCH (05:35)
[2023-07-15 05:46] VITALS: TEMP 97.5
[2023-07-15] MEDS: HYDROmorphone 1 MG/ML 1 ML SYRINGE IVP STA (05:56)
[2023-07-15 08:48] LABS: Glucose,Whole Blood 168 mg/dL (70-110)
[2023-07-15 13:32] VITALS: BP 99/80; PULSE 66; RESP 16
== END 2023-07-15 13:56 | disposition home or self-care (01) ==
LOC: EC 22:29 → 6NMEDSUR 07-15 03:07
PROVIDERS: ADMIT Family Medicine; ATTEND Family Medicine
DX: L08.9 Local infection of the skin and subcutaneous tissue, unspecified (principal); E11.9 Type 2 diabetes mellitus without complications; F31.9 Bipolar disorder, unspecified; F41.9 Anxiety disorder, unspecified; F17.200 Nicotine dependence, unspecified, uncomplicated; Z86.73 Personal history of transient ischemic attack (TIA), and cerebral infarction without residual deficits; Z79.899 Other long term (current) drug therapy; Z79.82 Long term (current) use of aspirin; Z79.02 Long term (current) use of antithrombotics/antiplatelets; Z79.84 Long term (current) use of oral hypoglycemic drugs; Z79.4 Long term (current) use of insulin
CPT/HCPCS: 96365; 96366; 96375; 99284; 36415; 80053; 83605; 85025; 87070; 87205; 87075; 73630; G0378; J1335; J1170; 87077; 87186

== ENCOUNTER → 2024-04-11 | Outpatient (CLI) | payer OTHER ==
[2024-04-11 14:12] LABS: African American GFR (CKD) >90 (>60 ml/min/1.73 sqM); Blood Urea Nitrogen 17 mg/dL (7-17); Non-African American GFR(CKD) >90 (>60 ml/min/1.73 sqM)
--- NOTE | 2024-04-11 16:03 | CT ---
EXAMINATION TYPE: CT angio abd aorta w/Runoff CT abdomen and pelvis without contrast. CT angiogram abdomen and pelvis with contrast. DATE OF EXAM: 04/11/2024 3:03 PM COMPARISON: None. CLINICAL INDICATION: Female, 64 years old with history of I77.1 stricture of artery; PHH, right leg s welling and color change/pain TECHNIQUE: CT angio abd aorta w/Runoff CT noncontrast abdomen pelvis and bilateral lower extremity followed by CT angiogram abdomen and pelv is and bilateral lower extremities. Multiple thin slice sub-millimeter images were obtained before and after administration of contrast. 3-D reconstructed images and maximum intensity projection images were obtained. CT angio abd aorta w/Runoff CT Contrast: Contrast used:100 mL of Isovue 370 with IV Contrast, Oral contrast used: None CT DLP: 770.7 mGycm, Automated exposure control for dose reduction was used. FINDINGS: CTA Abdomen and pelvis: There is severe atherosclerotic disease throughout the visualized thoracic an d abdominal aorta. Aortobiiliac stent grafts appear patent. Severe calcified plaque along the common iliac arteries and external iliac arteries. CTA Lower extremities: Right: Peak common femoral artery is patent. The superficial femoral artery appears occluded from its origin through a stent with out reconstitution definitively visualized. Below knee amputation change s. Left: The common femoral artery is patent with stenosis. Superficial femoral artery appears to have t rickled flow mixed with occlusion of the stent grafts the more distal portion. [id number] amputat ion changes. LOWER CHEST: No evidence of focal consolidation, pneumothorax or pleural effusion. Severe coronary artery atherosclerosis. LIVER: Diffusely hypoattenuating parenchyma. GALLBLADDER AND BILE DUCTS: Unremarkable. PANCREAS: Unremarkable. SPLEEN: Unremarkable. ADRENAL GLANDS: Adenomatous hypertrophy changes of the adrenal glands. KIDNEYS AND URETERS: No evidence of hydronephrosis or renal calculus. The ureters are unremarkable. There is striated nephrogram of the left renal cortex. PELVIS BLADDER: Circumferential bladder wall thickening with hyperemia. REPRODUCTIVE: Unremarkable. ABDOMEN & PELVIS STOMACH AND BOWEL: No evidence of bowel obstruction. PERITONEUM: No evidence of pneumoperitoneum or free fluid. VASCULATURE: No evidence of aortic aneurysm. MUSCULOSKELETAL: No acute osseous abnormalities LYMPH NODES: No gross evidence for lymphadenopathy. SOFT TISSUE/ABDOMINAL WALL: Subcutaneous lesion along the left lower abdomen abdominal wall measuring simple fluid possibly representing a seroma versus sebaceous cyst. IMPRESSION: 1. Severe atherosclerotic disease with occlusion of the superficial femoral artery stent grafts bila terally worse on the right with occlusion prior to the stent graft extending through the stent grafts . On the left the occlusion is at the distal portion of the stent graft. 2. Bladder wall thickening with hyperemia correlate with urinalysis for cystitis. 3. Striated left renal nephrogram, correlate for ascending infection. 4. Hepatic steatosis. [facility], , 04/11/2024 4:00 PM
== END | disposition home or self-care (01) ==
LOC: RADCTMAIN 12:58
PROVIDERS: ATTEND Surgery Vascular Surgery
DX: I77.1 Stricture of artery (principal); K76.0 Fatty (change of) liver, not elsewhere classified; I25.10 Atherosclerotic heart disease of native coronary artery without angina pectoris; I70.0 Atherosclerosis of aorta; N32.89 Other specified disorders of bladder; R68.89 Other general symptoms and signs
CPT/HCPCS: 82565; 84520; 75635; 36415; Q9967